=== PATIENT | female | born 1960 | race Caucasian/White ===

== ENCOUNTER → 2021-08-23 14:34 | Outpatient (REF) | payer OTHER, SELFPAY ==
--- NOTE | ~2021-08-23 | XR_ITS ---
EXAMINATION: XR CHEST CLINICAL INFORMATION: Follow up density right medial lung base COMPARISON: Previous chest x-ray 05/18/2021 TECHNIQUE: 2 views of the chest were obtained. FINDINGS: The cardiac and mediastinal contours are normal. The lungs are clear. There is no pleural effusion or pneumothorax. There are mild degenerative changes of the spine. XR/XR chest 2V IMPRESSION: Unremarkable exam.
--- NOTE | 2021-08-23 15:26 | HM_ITS ---
Conclusion: 1. Patient was monitored for total period of 6 days and 14 hours 2. Baseline rhythm is normal sinus rhythm with average heart rate of 72 beats per minute 3. No atrial fibrillation noted 4. No significant pauses or bradycardia noted 5. Three short runs of supraventricular tachycardia with longest of 5 beats at 135 beats per minute 6. Rare PACs noted 7. No patient reported events MTDD
[2021-08-23 15:43] LABS: MANUAL DIFF FLAG NO
[2021-08-23 15:57] LABS: Basophils Percent Auto 0.7 % (0-2); Eosinophils Absolute Auto 0.1 X10*3/uL (0.0-0.4); Eosinophils Percent Auto 1.6 % (0-4); Hematocrit 41.3 % (37-47); Hemoglobin 13.5 g/dl (12.0-16.0); Imm Gran Abs Auto 0.03 X10*3/uL (0.00-0.03); Imm Gran Pct Auto 0.5 % (0.0-0.4); Lymphocytes Absolute Auto 1.5 X10*3/uL (1.2-4.9); Lymphocytes Percent Auto 25.3 % (20-40); Mean Corpuscular HGB Conc 32.7 g/dl (31.0-35.0); Mean Corpuscular Hemoglobin 28.5 pg (27.0-33.0); Mean Corpuscular Volume 87.3 fL (80-98); Mean Platelet Volume 9.3 fL (9.4-12.3); Monocytes Absolute Auto 0.5 X10*3/uL (0.1-1.2); Monocytes Percent Auto 7.9 % (2-11); Neutrophils Absolute Auto 3.9 X10*3/uL (2.0-8.3); Platelet Count 309 X10*3/uL (160-400); Red Blood Count 4.73 X10*6/uL (4.20-5.50); Red Cell Distribution Width 14.2 % (11.0-16.0); White Blood Count 6.1 X10*3/uL (4.8-10.8)
== END ==
LOC: HO.CARD 14:34
PROVIDERS: PCP Internal Medicine; Visit Provider Internal Medicine
DX: R91.1 Solitary pulmonary nodule (principal); E66.3 Overweight; D64.9 Anemia, unspecified; Z87.898 Personal history of other specified conditions
CPT/HCPCS: 36415; 71046; 84443; 85025; 93242

== ENCOUNTER 2021-10-06 07:50 | Outpatient (REF) | payer OTHER, SELFPAY ==
--- NOTE | 2021-10-06 08:00 | EEG_ITS ---
This is a 16-channel EEG with an EKG lead. The patient is reported awake during the tracing. Background EEG rhythm is about 10 hertz, 5 to 30 microvolt posteriorly, lower amplitude fast anteriorly. Photic stimulation does not produce any significant abnormality. Hyperventilation is not performed. Cardiac lead does not reveal any significant abnormality. No sharp wave spikes, paroxysmal tendency, or asymmetry noted. IMPRESSION: Unremarkable EEG. MD IESHA Martinez/MER / [id number]
[2021-10-06 08:53] LABS: Alanine Aminotransferase 23 U/L (0-31); Albumin Level 4.4 g/dL (3.5-5.0); Alkaline Phosphatase 59 U/L (39-117); Anion Gap 10 (12-20); Aspartate Amino Transferase 23 U/L (5-31); Bilirubin Total 0.7 mg/dL (0.0-1.0); Blood Urea Nitrogen 11 mg/dL (9-16); Calcium 9.6 mg/dL (8.4-10.2); Carbon Dioxide 29 mmol/L (22-29); Chloride 106 mmol/L (96-108); Cholesterol 220 mg/dL; Estimated Glomerular Filt Rate > 60; Glucose Fasting 99 mg/dL (60-99); HDL Cholesterol 83 mg/dL; LDL Cholesterol Calculated 126 mg/dl; Potassium 4.4 mmol/L (3.3-5.1); Sodium 141 mmol/L (135-145); Triglycerides 58 mg/dL
== END 2021-10-06 07:51 | disposition home or self-care (01) ==
LOC: HO.NEURO 07:50
PROVIDERS: Visit Provider Internal Medicine
DX: E66.3 Overweight (principal); E78.5 Hyperlipidemia, unspecified
CPT/HCPCS: 36415; 80053; 80061; 95816

== ENCOUNTER 2021-10-18 08:18 | Outpatient (REF) | payer OTHER, SELFPAY ==
[2021-10-21 20:07] LABS: HPV mRNA E6/E7 rflx Not Detected (Not Detected)
== END 2021-10-18 08:19 | disposition home or self-care (01) ==
LOC: HO.LAB 08:18
PROVIDERS: Visit Provider Advanced Practice Midwife
DX: Z01.419 Encounter for gynecological examination (general) (routine) without abnormal findings (principal); Z11.51 Encounter for screening for human papillomavirus (HPV)
CPT/HCPCS: 87624; 88142

== ENCOUNTER 2021-11-07 16:11 | Outpatient (REF) | payer OTHER, SELFPAY ==
--- NOTE | ~2021-11-07 | MM_ITS ---
EXAMINATION: MM SCREENING DIGITAL BREAST TOMOSYNTHESIS, BILATERAL CLINICAL INFORMATION: Screening. Asymptomatic. No prior breast imaging. Age 61. No known family history breast cancer. The lifetime risk of breast cancer based on the Tyrer-Cuzick Model is 9%. COMPARISON: None (current study represents initial baseline exam). TECHNIQUE: Digital breast tomosynthesis is performed in both the craniocaudal and mediolateral oblique views along with computer-aided detection (CAD). Synthesized 2D images are generated from the tomosynthesis. Additional right MLO view is provided. FINDINGS: There are scattered areas of fibroglandular density (ACR BI-RADS breast composition Category b). There is fine fibronodular parenchymal pattern. There is no significant mass or architectural abnormality or abnormal calcifications. Skin contours are smooth. MM/MM tomosynthesis screening BI IMPRESSION: No mammographic evidence of malignancy. ASSESSMENT: BI-RADS 2: Benign RECOMMENDATION: Routine annual mammography screening. This patient's information was entered into a reminder system with a target due date for their next mammogram.
== END 2021-11-07 16:12 | disposition home or self-care (01) ==
LOC: HO.MAMMO 16:11
PROVIDERS: Visit Provider Advanced Practice Midwife
DX: Z12.31 Encounter for screening mammogram for malignant neoplasm of breast (principal)
CPT/HCPCS: 77063; 77067

== ENCOUNTER 2022-05-23 09:28 | Outpatient (REF) | payer OTHER, SELFPAY ==
[2022-05-23 10:33] LABS: Alanine Aminotransferase 21 U/L (0-31); Albumin Level 4.4 g/dL (3.5-5.0); Alkaline Phosphatase 63 U/L (39-117); Anion Gap 11 (12-20); Aspartate Amino Transferase 19 U/L (5-31); Bilirubin Total 0.4 mg/dL (0.0-1.0); Blood Urea Nitrogen 10 mg/dL (9-16); Calcium 9.1 mg/dL (8.4-10.2); Carbon Dioxide 27 mmol/L (22-29); Chloride 106 mmol/L (96-108); Cholesterol 214 mg/dL; Estimated Glomerular Filt Rate > 60; Glucose Fasting 91 mg/dL (60-99); HDL Cholesterol 75 mg/dL; LDL Cholesterol Calculated 127 mg/dl; Potassium 4.7 mmol/L (3.3-5.1); Sodium 139 mmol/L (135-145); Total Protein 7.1 g/dL (6.5-8.0); Triglycerides 63 mg/dL
== END 2022-05-23 09:29 | disposition home or self-care (01) ==
LOC: HO.LAB 09:28
PROVIDERS: PCP Internal Medicine; Visit Provider Internal Medicine
DX: Z01.419 Encounter for gynecological examination (general) (routine) without abnormal findings (principal); E78.5 Hyperlipidemia, unspecified
CPT/HCPCS: 36415; 80053; 80061

== ENCOUNTER 2022-12-01 15:39 | Outpatient (REF) | payer OTHER, SELFPAY ==
--- NOTE | ~2022-12-01 | MM_ITS ---
EXAMINATION: MM SCREENING DIGITAL BREAST TOMOSYNTHESIS, BILATERAL CLINICAL INFORMATION: Screening. Asymptomatic. The lifetime risk of breast cancer based on the Tyrer-Cuzick Model is 9%. COMPARISON: Mammography: 11/07/2021 (baseline) TECHNIQUE: Digital breast tomosynthesis is performed in both the craniocaudal and mediolateral oblique views along with computer-aided detection (CAD). Synthesized 2D images are generated from the tomosynthesis. Additional left MLO view is provided FINDINGS: There are scattered areas of fibroglandular density (ACR BI-RADS breast composition Category b). There is fine fibronodular parenchymal pattern similar to prior baseline exam. No interval mass or architectural abnormality. Right breast shows no abnormal calcifications. The bilateral axilla and skin contours are unremarkable. Left CC view has some punctate calcifications versus pseudo calcifications central breast, corresponding to the mid to lower tomographic slices. Patient will be recalled for additional imaging. MM/MM tomosynthesis screening BI IMPRESSION: Left: -Punctate calcifications versus digital calcification digital processing artifact central breast CC view. Right: -No mammographic evidence of malignancy. ASSESSMENT: BI-RADS 0: Incomplete - Need Additional Imaging Evaluation RECOMMENDATION: 1. Additional views of the left breast (magnification CC, magnification ML upper and lower). 2. Radiology department staff will contact the patient for additional imaging. This patient's information was entered into a reminder system with a target due date for their next mammogram.
== END 2022-12-01 15:40 | disposition home or self-care (01) ==
LOC: HO.MAMMO 15:39
PROVIDERS: Visit Provider Internal Medicine
DX: Z12.31 Encounter for screening mammogram for malignant neoplasm of breast (principal)
CPT/HCPCS: 77063; 77067

== ENCOUNTER 2022-12-08 08:54 | Outpatient (REF) | payer OTHER, SELFPAY ==
--- NOTE | ~2022-12-08 | MM_ITS ---
EXAMINATION: MM DIAGNOSTIC DIGITAL MAMMOGRAPHY, LEFT CLINICAL INFORMATION: Question left breast calcifications seen on craniocaudal view. COMPARISON: Mammography: 12/01/2022 and 11/07/2021. TECHNIQUE: Digital mammography is performed in the following views: Spot magnification views, left craniocaudal and 90-degree mediolateral views. FINDINGS: There are scattered areas of fibroglandular density (ACR BI-RADS breast composition Category b). No suspicious grouping of calcifications is identified. There is 1 macrocalcification seen at approximately the 12 o'clock position. Results are provided to the patient at time of visit by the technologist. MM/MM added views LT IMPRESSION: No suspicious grouping of microcalcifications identified. ASSESSMENT: BI-RADS 1: Negative. RECOMMENDATION: Routine annual mammography screening due in 12 months. This patient's information was entered into a reminder system with a target due date for their next mammogram.
== END 2022-12-08 08:55 | disposition home or self-care (01) ==
LOC: HO.MAMMO 08:54
PROVIDERS: PCP Internal Medicine; Visit Provider Internal Medicine
DX: R92.1 Mammographic calcification found on diagnostic imaging of breast (principal)
CPT/HCPCS: 77065

== ENCOUNTER → 2023-01-10 14:57 | Outpatient (BNVA) | payer OTHER, SELFPAY | PROVIDERS: PCP Internal Medicine; Visit Provider Advanced Practice Midwife | DX: Z13.89 Encounter for screening for other disorder (principal) ==

== ENCOUNTER 2023-12-03 15:46 | Outpatient (REF) | payer OTHER, SELFPAY | END 2023-12-03 15:47 | disposition home or self-care (01) | LOC: HO.MAMMO 15:46 | PROVIDERS: PCP Internal Medicine; Visit Provider Internal Medicine | DX: Z12.31 Encounter for screening mammogram for malignant neoplasm of breast (principal) | CPT/HCPCS: 77063; 77067 ==

== ENCOUNTER → 2023-12-03 16:00 | Outpatient (BNV) | payer OTHER, SELFPAY | PROVIDERS: PCP Internal Medicine; Visit Provider Radiology Diagnostic Radiology | DX: Z12.31 Encounter for screening mammogram for malignant neoplasm of breast (principal) | CPT/HCPCS: 77063; 77067 ==

== ENCOUNTER 2023-12-18 17:13 | Outpatient (AMB) | payer OTHER, SELFPAY ==
--- NOTE | 2023-12-18 17:14 | A.OFFPC_ITS ---
Vital Signs 12/18/23 17:16 Height 5 ft 8 in Weight 200 lb BMI 30.4 BP 156/80 H Blood Pressure Location Lt brachial Position Sitting Intake Visit Reasons: physical Intake Note: Patient here for a physical exam Press Setter Required: No Accompanied by: Self / Same As Patient Allergies Penicillins Allergy (Intermediate, Verified 12/18/23 17:23) rash menthol [From Icy Hot] Allergy (Mild, Verified 12/18/23 17:23) Rash methyl salicylate [From Icy Hot] Allergy (Mild, Verified 12/18/23 17:23) Rash Medication List - Last Reconciled 12/18/23 by Michelle Tripathi MD No Known Home Meds Tobacco use date assessed: 12/18/23 Dental Screening Dental Screen Date: 12/18/23 Did you have a dental visit in the last 12 months?: Yes Did you have a dental problem in the last 6 months where you did not have access to dental care?: No Was dental information given to patient?: Patient has dentist HPI HPI Comments History of Present Illness Details This is a 63-year-old female that comes for her physical exam. Mammogram done 2022. Pap smear done 2022. Cologuard done 2021 was negative. Complains of right hip pain that has been present for over 6 months. Happens on adduction and abduction [facility] Medical History Obesity (BMI 30-39.9) Physical exam Pure hypercholesterolemia Adopted Leg edema Shortness of breath Alcohol use Lung nodule History of syncope Overweight (BMI 25.0-29.9) Surgical History History of sebaceous cyst Family History Unknown Adopted Social History Housing: Condominium Alcohol intake: current Alcohol intake frequency: a few times a week Alcohol type: beer Patient Tobacco Use Status: Never used Tobacco e-Cigarette/Vaping Use: Never Used Second Hand Smoke Exposure: No service: No Current occupational status: employed Current occupational exposures/hazards: No Cognitive needs: No Hearing needs: No Vision needs: No Questionnaire PHQ-9 Over the last 2 weeks, how often have you been bothered by any of the following problems? 1. Little interest or pleasure in doing things: not at all 2. Feeling down, depressed, or hopeless: not at all 3. Trouble falling or staying asleep, or sleeping too much: not at all 4. Feeling tired or having little energy: not at all 5. Poor appetite or overeating: not at all 6. Feeling bad about yourself - or that you are a failure or have let yourself or your family down: not at all 7. Trouble concentrating on things, such as reading the newspaper or watching television: not at all 8. Moving or speaking so slowly that other people could have noticed. Or the opposite - being so fidgety or restless that you have been moving around a lot more than usual: not at all 9. Thoughts that you would be better off or of hurting yourself in some way: not at all Total score: 0 Depression Screening Interpretation: Negative Depression Screening Done: Yes 02463 - PHQ-9 Billing: Yes Source: Developed by Drs. Edwin Saenz, Minoo Echeverria, Jaziel Stubbs and colleagues, with an educational cristy from [employer]. Thrive Questionnaire Date Thrive assessed: 12/18/23 I am a: Patient What is your living situation today?: I have a steady place to live Within the past 12 months, did the food you bought not last and you didn't have the money to get more?: Never true Within the past 12 months, did you worry whether your food would run out before you got money to buy more?: Never true Do you have trouble paying for medicines?: No Do you have trouble getting transportation to medical appointments?: No Do you have trouble paying your heating and electricity bill?: No Do you have trouble taking care of your child, family member or friend?: No Do you have trouble with day-to-day activities such as bathing, preparing meals, shopping, managing finances, etc.?: No Are you currently unemployed and looking for a job?: No Are you interested in more education?: No Please select the resources that you would like help with: None Currently or been in a relationship where the following occur: no concerns reported THRIVE Score: 0 AUDIT C Alcohol Use Questionnaire (AUDIT-C) 1. How often do you have a drink containing alcohol?: 4 or more times a week 2. How many drinks containing alcohol do you have on a typical day when you are drinking?: 1 or 2 3. How often do you have six or more drinks on one occasion?: Never Total Score: 4 Score Reviewed/Action Taken: Yes MJ-7 AMB Questionnaire MJ-7 Date MJ - 7 assessed: 12/18/23 Feeling nervous, anxious, or on edge: 0 = Not at all Not being able to stop or control worryin = Not at all Worrying too much about different things: 0 = Not at all Trouble relaxin = Not at all Being so restless that it is hard to sit still: 0 = Not at all Becoming easily annoyed or irritable: 0 = Not at all Feeling afraid as if something awful might happen: 0 = Not at all Total MJ-7 score (0-4 normal; 5-9 mild; 10-14 moderate; 15-21 severe): 0 Source: Developed by Drs. Edwin Saenz, Minoo Echeverria, Jaziel Stubbs and colleagues, with an educational cristy from [employer]. MJ-7 Assessment Billing MJ-7 Assessment Tool: MJ-7 Assessment 37308 Review of Systems Const All systems reviewed & are unremarkable except as noted in HPI and below Eyes Reports no additional complaints, Denies change in vision and Denies other v isual disturbances Card Denies chest pain at rest, Denies chest pain with activity, Denies edema, Denies irregular heart rhythm, Denies claudication, Denies dyspnea, Denies dyspnea on exertion, Denies orthopnea, Denies paroxysmal nocturnal dyspnea and Denies slow heart rate Resp Denies cough, Denies dyspnea and Denies dyspnea on exertion GI Denies abdominal pain, Denies change in bowel habits, Denies excessive flatus, Denies nausea and Denies vomiting Denies urinary incontinence, Denies urinary hesitancy and Denies urinary urgency Musc Denies abnormal gait, Denies atrophy, Denies deformity, Reports arthralgias and Denies limited range of motion Skin/Breast Denies bleeding lesions, Denies changing lesions and Denies rash Neuro Denies abnormal gait, Denies behavioral changes, Denies confusion and Denies lack of coordination Psych Denies behavioral changes and Denies confusion Physical exam (Primary Care) Vital Signs: Last Vital Signs BP 156/80 H 12/18/23 17:16 BMI result Body Mass Index 30.4 Tobacco/Smoking Status: Tobacco use Status Tobacco use date assessed 12/06/22 12/06/22 17:25 Patient Tobacco Use Status Never used Tobacco 01/10/23 15:14 e-Cigarette/Vaping Use Never Used 01/10/23 15:14 Depression Screening Interpretation: Negative Thrive Assessment: Date of Thrive Assessment Date Thrive assessed 12/06/22 12/06/22 17:25 Currently or been in a relationship where the following occur: no concerns reported Const General: No confusion Orientation/consciousness: patient oriented x3 and No confusion HENMT Head: Yes normal to inspection, Yes normocephalic and Yes atraumatic Ears: external ears normal Eyes General: appearance normal, both eyes and all related structures Eyelids: Yes eyelids normal Conjunctivae: conjunctivae normal Neck Neck: Yes normal visual inspection and Yes supple Resp Effort & Inspection: normal respiratory effort Auscultation: clear to auscultation bilaterally Cardio Jugular venous distension: no JVD Rate: regular rate Rhythm: regular rhythm Heart sounds: S1 normal heart sound present and S2 normal heart sound present GI Inspection: Yes normal to inspection Palpation (GI): Soft to palpation and nontender Auscultation: normal bowel sounds Skin General skin exam: no rashes or lesions noted Neuro General: patient oriented x3, no focal motor deficits and No confusion Extrem General: Yes full ROM Psych Appearance: grossly normal Assessment and Plan Assessment & Plan (1) Physical exam: Code(s): Z00.00 - Encounter for general adult medical examination without abnormal findings Plan: Repeat in a year. Orders: Orders ECG 12 lead EKG Today R00.0 - Tachycardia, unspecified XR DEXA axial skeleton Today N95.9 - Unspecified menopausal and perimenopausal disorder XR hip RT min 2V Today M25.551 - Pain in right hip Lipid Panel Today E78.5 - Hyperlipidemia, unspecified, Z00.00 - Encounter for general adult medical examination without abnormal findings Comprehensive [place]. Panel Fast Today Z00.00 - Encounter for general adult medical examination without abnormal findings Coding Level of Care Code Est Pt Prev Care 40-64y(89799) Diagnoses Physical exam Z00.00 Additional Codes MJ-7 Assessment Billing - MJ-7 Assessment Tool: MJ-7 Assessment 53464 ([id number]) Time Spent (min) 31
[2023-12-18 17:16] VITALS: BP 156/80; BMI 30.4
== END 2023-12-18 17:30 | disposition home or self-care (01) ==
LOC: HO.HMGH 17:14
PROVIDERS: PCP Internal Medicine; Visit Provider Internal Medicine
DX: Z00.00 Encounter for general adult medical examination without abnormal findings (principal)
CPT/HCPCS: 99396

== ENCOUNTER 2023-12-21 07:22 | Outpatient (REF) | payer OTHER, SELFPAY ==
--- NOTE | ~2023-12-21 | XR_ITS ---
EXAMINATION: XR HIP, RIGHT CLINICAL INFORMATION: Pain in right hip, patient stated back injury and right hip pain from injury from a year ago. COMPARISON: None available. TECHNIQUE: 2 views of the right hip. FINDINGS: Degenerative changes in the right sacroiliac joint. Small rounded pelvic calcifications are likely vascular. Mild joint space narrowing right hip with degenerative changes. XR/XR hip RT min 2V IMPRESSION: Mild degenerative changes in the right hip.
--- NOTE | 2023-12-21 07:29 | ECG_ITS ---
Test Reason : tachycadia Blood Pressure : / mmHG Vent. Rate : 063 BPM Atrial Rate : 063 BPM P-R Int : 138 ms QRS Dur : 084 ms QT Int : 424 ms P-R-T Axes : 056 -11 007 degrees QTc Int : 433 ms Normal sinus rhythm Normal ECG No previous ECGs available Referred By: Michelle Tripathi Electronically Signed By:Uri Hewitt
[2023-12-21 08:23] LABS: Alanine Aminotransferase 18 U/L (0-31); Albumin Level 4.3 g/dL (3.5-5.0); Alkaline Phosphatase 58 U/L (39-117); Anion Gap 13 (12-20); Aspartate Amino Transferase 18 U/L (5-31); Bilirubin Total 0.5 mg/dL (0.0-1.0); Blood Urea Nitrogen 10 mg/dL (9-16); Calcium 9.5 mg/dL (8.4-10.2); Carbon Dioxide 28 mmol/L (22-29); Chloride 106 mmol/L (96-108); Cholesterol 218 mg/dL (<200); Estimated Glomerular Filt Rate > 60; Glucose Fasting 93 mg/dL (60-99); HDL Cholesterol 81 mg/dL (>40); LDL Cholesterol Calculated 125 mg/dL (<100); Sodium 143 mmol/L (135-145); Total Protein 7.4 g/dL (6.5-8.0); Triglycerides 62 mg/dL (<150)
== END 2023-12-21 07:23 | disposition home or self-care (01) ==
LOC: HO.LAB 07:22
PROVIDERS: PCP Internal Medicine; Visit Provider Internal Medicine
DX: M25.551 Pain in right hip (principal); R00.0 Tachycardia, unspecified; E78.5 Hyperlipidemia, unspecified; Z00.00 Encounter for general adult medical examination without abnormal findings
CPT/HCPCS: 36415; 73502; 80053; 80061; 93005

== ENCOUNTER → 2023-12-21 07:29 | Outpatient (BNV) | payer OTHER, SELFPAY | PROVIDERS: PCP Internal Medicine; Visit Provider Internal Medicine Cardiovascular Disease | DX: R00.0 Tachycardia, unspecified (principal) | CPT/HCPCS: 93010 ==

== ENCOUNTER 2024-01-04 14:17 | Outpatient (REF) | payer OTHER, SELFPAY ==
--- NOTE | ~2024-01-04 | MM_ITS ---
EXAMINATION: BONE DENSITOMETRY CLINICAL INDICATION: Unspecified menopausal and perimenopausal disorder. COMPARISON: This is the patient's baseline examination. TECHNIQUE: Using a [employer] DXA System (software version: 13.1) manufactured by [employer], dual-energy x-ray absorptiometry was performed of the lumbar spine and left hip. The images are of good technical quality. Summary results are attached. FINDINGS: LEFT FEMUR, NECK: BMD 0.898 g/cm2, Z-score -0.1, T-score -1.0, normal. LEFT FEMUR, TOTAL: BMD 0.980 g/cm2, Z-score 0.3, T-score -0.2, normal. AP SPINE L1-L4: BMD 1.067 g/cm2, Z-score -0.3, T-score -0.9, normal. IDENTIFIED RISK FACTORS: Menopause. HISTORY OF FRACTURE: None listed. MEDICATIONS: Calcium. MM/XR DEXA axial skeleton IMPRESSION: 1. DIAGNOSIS: Normal bone density based on the lowest T-score value of -1.0 in the femoral neck applying World Health Organization criteria. 2. 10-YEAR FRACTURE RISK PREDICTION, FRAX: According to the guidelines, FRAX calculation should only be performed on patients in the osteopenia bone density category. Therefore, FRAX was not performed on this patient. 3. Treatment Recommendations: NOF guidelines recommend consideration for treatment in postmenopausal women and men age 50 and older presenting with the following: -A hip or vertebral (clinical or morphometric) fracture. -T-score less than or equal to -2.5 at the femoral neck or spine after appropriate evaluation to exclude secondary causes. -Low bone mass at the hip or spine and a 10-year fracture probability by FRAX of greater than or equal to 3% for hip fracture or greater than or equal to 20% for major osteoporotic fracture based on the [place] adapted WHO algorithm. 4. Other Recommendations: All treatment decisions require clinical judgment and consideration of individual patient factors, including patient preferences, comorbidities, previous drug use, risk factors not captured in the FRAX model (e.g. frailty, falls, vitamin D deficiency, increased bone turnover, interval significant decline in bone density) and possible under or overestimation of fracture risk by FRAX. FUTURE SCAN RECOMMENDATION: People with diagnosed cases of osteoporosis or at high risk for fracture should have regular bone mineral density tests. For patients eligible for Medicare, routine testing is allowed once every 2 years. The testing frequency can be increased to one year for patients who have rapidly progressing disease, those who are receiving or discontinuing medical therapy to restore bone mass, or have additional risk factors.
== END 2024-01-04 14:18 | disposition home or self-care (01) ==
LOC: HO.MAMMO 14:17
PROVIDERS: PCP Internal Medicine; Visit Provider Internal Medicine
DX: Z13.820 Encounter for screening for osteoporosis (principal); Z78.0 Asymptomatic menopausal state
CPT/HCPCS: 77080

== ENCOUNTER 2024-02-27 14:08 | Outpatient (AMB) | payer OTHER, SELFPAY ==
--- NOTE | 2024-02-27 14:28 | MHC.OFFVIS ---
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 She is doing well with no concerns. Attempting to eat a healthy diet with calcium and vitamin D and stays active with exercise. Currently not sexually active. Denies any vaginal dryness or irritation. STI testing offered; she declines. Last pap smear; 2020. Last mammogram; 2023. Colonoscopy is UTD. Patient is adopted. [facility] Medical History Obesity (BMI 30-39.9) Physical exam Pure hypercholesterolemia Adopted Leg edema Shortness of breath Alcohol use Lung nodule History of syncope Overweight (BMI 25.0-29.9) Surgical History History of sebaceous cyst Family History Unknown Adopted Social History Housing: Condominium Alcohol intake: current Alcohol intake frequency: a few times a week Alcohol type: beer Patient Tobacco Use Status: Never used Tobacco e-Cigarette/Vaping Use: Never Used Second Hand Smoke Exposure: No service: No Current occupational status: employed Current occupational exposures/hazards: No Cognitive needs: No Hearing needs: No Vision needs: No Female Reproductive History Menstrual Total pregnancies: 0 Date of last pap smear: 10/18/21 (neg pap and hpv) Date of Mammogram: 12/03/23 (Birad 1) Date of last Bone Density Screenin01/04/24 Review of Systems Const All systems reviewed & are unremarkable except as noted in HPI and below Reports as per HPI Eyes Reports no additional complaints ENT Reports no additional complaints Card Reports no additional complaints Resp Reports no additional complaints GI Reports as per HPI and Reports no additional complaints Reports as per HPI Musc Reports no additional complaints Skin/Breast Reports as per HPI Neuro Reports no additional complaints Psych Reports no additional complaints Endo Reports no additional complaints Faisal/Lymph Reports no additional complaints Aller/Immun Reports no additional complaints Physical Exam Vital Signs: Last Vital Signs BP 124/76 02/27/24 14:29 BMI result Body Mass Index 30.1 Const General: cooperative, healthy appearing, no acute distress, well developed and alert Orientation/consciousness: patient oriented x3 HEENT Head: Yes normal to inspection Eyes General: appearance normal, both eyes and all related structures Neck Neck: Yes normal visual inspection Thyroid: Thyroid normal Chest Chest palpation & inspection: normal inspection of the chest and other (no puckering, dimpling, peau de orange, retraction, discharge, masses) Breast/axilla inspection: normal inspection of the breasts Breast/axilla palpation: normal palpation of the breasts Resp Effort & Inspection: normal respiratory effort GI Inspection: Yes normal to inspection Palpation (GI): Soft to palpation Rectal Exam - Female: deferred General: Yes bladder normal to palpation External Female Exam: normal external appearance and normal appearance of the urethra Speculum Exam - Vagina: normal appearance of the vagina, normal palpation, normal vaginal discharge and vagina atrophic Speculum Exam - Cervix: normal appearance of the cervix and normal palpation Bimanual exam- vagina & uterus: normal bimanual exam, normal palpation, uterine size normal, bladder normal to palpation, normal palpation and non-tender Bimanual Exam- Adnexa, other: no masses Skin General skin exam: no rashes or lesions noted Rashes: no rashes Neuro General: patient oriented x3 Cognition (Neuro): normal cognition Extrem General: Yes normal to inspection Psych Attitude: cooperative Thought process: Normal thought process present Assessment & Plan Assessment & Plan (1) Encounter for well woman exam with routine gynecological exam: Code(s): Z01.419 - Encounter for gynecological examination (general) (routine) without abnormal findings Plan Discussed: Current recommendations for pap smears per ASCCP guidelines. Breast awareness, periodic self breast exams and yearly mammogram. Maintain a healthy lifestyle, well balanced diet including Calcium 1,200 mg and Vitamin D 600 IU daily, and routine exercise. Contact the office with any postmenopausal bleeding. Patient verbalizes understanding and agrees to the plan of care. She was given opportunity to ask questions and all questions were answered to the best of my ability. 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 This note is constructed using voice recognition software. While every effort has been made to ensure accuracy, generating station mechanic errors may have been included. Coding Level of Care Code Est Pt Prev Care 40-64y(33611) Diagnoses Encounter for well woman exam with routine gynecological exam Z01.419
[2024-02-27 14:29] VITALS: BP 124/76; BMI 30.1
== END 2024-02-27 15:24 | disposition home or self-care (01) ==
LOC: HO.HWS 14:08
PROVIDERS: PCP Internal Medicine; Visit Provider Advanced Practice Midwife
DX: Z01.419 Encounter for gynecological examination (general) (routine) without abnormal findings (principal)
CPT/HCPCS: 99396

== ENCOUNTER → 2024-02-27 14:08 | Outpatient (BNVA) | payer OTHER, SELFPAY | PROVIDERS: PCP Internal Medicine; Visit Provider Advanced Practice Midwife ==

== ENCOUNTER 2024-03-11 07:14 | Outpatient (REF) | payer OTHER, SELFPAY ==
[2024-03-11 08:34] LABS: B Type Natriuretic Peptide 44 pg/mL (<100)
[2024-03-11 08:36] LABS: Cholesterol 208 mg/dL (<200); HDL Cholesterol 71 mg/dL (>40); LDL Cholesterol Calculated 121 mg/dL (<100); Triglycerides 80 mg/dL (<150)
[2024-03-11 08:50] LABS: TSH reflex Free T4 2.68 uIU/mL (0.32-4.0)
== END 2024-03-11 07:15 | disposition home or self-care (01) ==
LOC: HO.LAB 07:14
PROVIDERS: PCP Internal Medicine; Visit Provider Internal Medicine Cardiovascular Disease
DX: Z13.89 Encounter for screening for other disorder (principal)
CPT/HCPCS: 36415; 80061; 83735; 83880; 84443

== ENCOUNTER 2024-07-03 16:54 | Outpatient (AMB) | payer OTHER, SELFPAY ==
[2024-07-03 16:58] VITALS: BP 130/70; BMI 29.6
--- NOTE | 2024-07-03 16:58 | A.OFFPC_ITS ---
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 Accompanied by: Self / Same As Patient Allergies Penicillins Allergy (Intermediate, Verified 07/03/24 17:05) rash menthol [From Icy Hot] Allergy (Mild, Verified 07/03/24 17:05) Rash methyl salicylate [From Icy Hot] Allergy (Mild, Verified 07/03/24 17:05) Rash Medication List - Last Reconciled 07/03/24 by Michelle Tripathi MD apixaban (Eliquis) 5 mg PO BID 90 days diltiazem HCl CD 360 mg PO DAILY metoprolol tartrate 25 mg PO BID Tobacco use date assessed: 12/18/23 Fall risk assessment: No Falls in past year Last assessed Fall Risk: 07/03/24 Dental Screening Dental Screen Date: 12/18/23 HPI HPI Comments History of Present Illness Details This is a 64-year-old female with atrial flutter that comes today complaining of diarrhea that has been present over a month ago after having an upper respiratory viral infection which she recovered from. She was not given any antibiotics. No fever. She will have stool samples done. On chronic anticoagulation for atrial flutter that is follow by cardiology. Will have cardioversion next month. [facility] Medical History (Updated 07/03/24 @ 17:25 by Michelle Tripathi MD) Obesity (BMI 30-39.9) Physical exam Pure hypercholesterolemia Adopted Leg edema Shortness of breath Alcohol use Lung nodule History of syncope Overweight (BMI 25.0-29.9) Surgical History History of sebaceous cyst Family History Unknown Adopted Social History (Updated 07/03/24 @ 17:08 by Michelle Tripathi MD) Housing: Condominium Alcohol intake: former Patient Tobacco Use Status: Never used Tobacco e-Cigarette/Vaping Use: Never Used Second Hand Smoke Exposure: No service: No Current occupational status: employed Current occupational exposures/hazards: No Cognitive needs: No Hearing needs: No Vision needs: No Questionnaire Thrive Questionnaire Date Thrive assessed: 12/18/23 MJ-7 AMB Questionnaire MJ-7 Date MJ - 7 assessed: 12/18/23 Source: Developed by Drs. Edwin Saenz, Minoo Echeverria, Jaziel Stubbs and colleagues, with an educational cristy from [employer]. Review of Systems Const All systems reviewed & are unremarkable except as noted in HPI and below Card Denies chest pain at rest, Denies chest pain with activity, Reports rapid heart rate, Denies edema, Denies irregular heart rhythm, Denies claudication, Denies dyspnea, Denies dyspnea on exertion, Denies orthopnea, Denies paroxysmal nocturnal dyspnea and Denies slow heart rate Resp Denies cough, Denies dyspnea and Denies dyspnea on exertion Physical exam (Primary Care) Vital Signs: Last Vital Signs BP 130/70 07/03/24 16:58 BMI result Body Mass Index 29.6 Tobacco/Smoking Status: Tobacco use Status Tobacco use date assessed 12/18/23 07/03/24 17:03 Patient Tobacco Use Status Never used Tobacco 07/03/24 17:08 e-Cigarette/Vaping Use Never Used 07/03/24 17:08 Thrive Assessment: Date of Thrive Assessment Date Thrive assessed 12/18/23 07/03/24 17:03 Resp Effort & Inspection: normal respiratory effort Auscultation: clear to auscultation bilaterally Cardio Jugular venous distension: no JVD Rhythm: regular rhythm and abnormal rhythm irregularly irregular Heart sounds: S1 normal heart sound present and S2 normal heart sound present Extrem General: Yes full ROM Assessment and Plan Assessment & Plan (1) Atrial flutter: Code(s): I48.92 - Unspecified atrial flutter Plan: Continue diltiazem, metoprolol and Eliquis. Follow-up with Cardiology. (2) Diarrhea: Code(s): R19.7 - Diarrhea, unspecified Plan: Stool samples ordered. Orders: Orders Leukocytes Stool Qualitative 07/03/24 R19.7 - Diarrhea, unspecified H pylori Ag Stool 07/03/24 R19.7 - Diarrhea, unspecified Cyclospora & Isospora Stool 07/03/24 R19.7 - Diarrhea, unspecified Giardia Ag Stool EIA 07/03/24 R19.7 - Diarrhea, unspecified Coding Level of Care Code Est Pt Level 3 (53304) Complex EM visit Add On G2211 Diagnoses Atrial flutter I48.92 Diarrhea R19.7 Time Spent (min) 19
== END 2024-07-03 17:24 | disposition home or self-care (01) ==
PROVIDERS: PCP Internal Medicine; Visit Provider Internal Medicine
DX: I48.92 Unspecified atrial flutter (principal); R19.7 Diarrhea, unspecified
CPT/HCPCS: 99213

== ENCOUNTER 2024-07-08 08:40 | Outpatient (REF) | payer OTHER, SELFPAY ==
[2024-07-08 10:14] LABS: Leukocytes Stool Qualitative NEGATIVE (NEGATIVE)
== END 2024-07-08 08:41 | disposition home or self-care (01) ==
LOC: HO.LNP 08:40
PROVIDERS: Visit Provider Internal Medicine
DX: R19.7 Diarrhea, unspecified (principal)
CPT/HCPCS: 87015; 87207; 87329; 87338; 89055

== ENCOUNTER 2024-07-11 20:19 | Outpatient (REF) | payer OTHER, SELFPAY | END 2024-07-11 20:20 | disposition home or self-care (01) | LOC: HO.LNP 20:19 | PROVIDERS: Visit Provider Internal Medicine | DX: R19.7 Diarrhea, unspecified (principal) | CPT/HCPCS: 87015; 87207; 87329; 87338 ==

== ENCOUNTER 2024-12-30 17:21 | Outpatient (AMB) | payer OTHER, SELFPAY ==
--- NOTE | 2024-12-30 17:32 | A.OFFPC_ITS ---
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 Accompanied by: Self / Same As Patient Allergies Penicillins Allergy (Intermediate, Verified 12/30/24 17:53) rash menthol [From Icy Hot] Allergy (Mild, Verified 12/30/24 17:53) Rash methyl salicylate [From Icy Hot] Allergy (Mild, Verified 12/30/24 17:53) Rash Medication List - Last Reconciled 12/30/24 by Michelle Tripathi MD apixaban (Eliquis) 5 mg PO BID 90 days diltiazem HCl CD 360 mg PO DAILY metoprolol tartrate 25 mg PO DAILY Tobacco use date assessed: 12/30/24 Fall risk assessment: No Falls in past year Last assessed Fall Risk: 12/30/24 Dental Screening Dental Screen Date: 12/30/24 Did you have a dental visit in the last 12 months?: Yes Did you have a dental problem in the last 6 months where you did not have access to dental care?: No Was dental information given to patient?: Patient has dentist HPI HPI Comments History of Present Illness Details The patient is a 64-year-old female presenting for a routine physical examination and health maintenance. She has a history of paroxysmal atrial flutter for which she is currently anticoagulated with Eliquis twice daily. She is also on diltiazem 360 mg daily in the morning and metoprolol 25 mg daily in the evening, as per her in home sales consultant's recommendation, due to hypertension and atrial fibrillation. She reports no recent increase in symptoms and passed a stress test recently with positive outcomes. The patient had her last tetanus vaccine in 2018 and has a Tdap due in 2028. She reports penicillin and menthol allergies. 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 The condition worsened with these activities, so she has played pickleball sparingly and is currently undergoing physical therapy with hopes of symptom resolution by the golf season. The patient has a BMI of 30.6, classifying her as Class 1 obesity, noting a weight gain of 6 pounds since her last examination. She attributes this to decreased activity due to her shoulder injury and recent influenza. - Last Tdap vaccination in 2019; next du e in 2028 - Mammogram recommended for this year - Bone density scan scheduled for 2025 - Pap smear last conducted in 2020, not due until five years if previous results negative - Cologuard test needs to be repeated in 2024 - Recent stress test with no significant findings - Blood work to include cholesterol, sug ar, kidneys, and liver function [facility] Medical History Obesity (BMI 30-39.9) Physical exam Pure hypercholesterolemia Adopted Leg edema Shortness of breath Alcohol use Lung nodule History of syncope Overweight (BMI 25.0-29.9) Surgical History History of sebaceous cyst Family History Unknown Adopted Social History (Updated 12/30/24 @ 17:57 by Michelle Tripathi MD) Housing: Condominium Alcohol intake: current Alcohol intake frequency: a few times a month Alcohol type: beer Patient Tobacco Use Status: Never used Tobacco e-Cigarette/Vaping Use: Never Used Second Hand Smoke Exposure: No service: No Current occupational status: employed Current occupational exposures/hazards: No Cognitive needs: No Hearing needs: No Vision needs: No Questionnaire PHQ-9 Over the last 2 weeks, how often have you been bothered by any of the following problems? 1. Little interest or pleasure in doing things: not at all 2. Feeling down, depressed, or hopeless: not at all 3. Trouble falling or staying asleep, or sleeping too much: not at all 4. Feeling tired or having little energy: not at all 5. Poor appetite or overeating: not at all 6. Feeling bad about yourself - or that you are a failure or have let yourself or your family down: not at all 7. Trouble concentrating on things, such as reading the newspaper or watching television: not at all 8. Moving or speaking so slowly that other people could have noticed. Or the opposite - being so fidgety or restless that you have been moving around a lot more than usual: not at all 9. Thoughts that you would be better off or of hurting yourself in some way: not at all Total score: 0 Depression Screening Interpretation: Negative Depression Screening Done: Yes 52514 - PHQ-9 Billing: Yes Source: Developed by Drs. Edwin Saenz, Minoo Echeverria, Jaziel Stubbs and colleagues, with an educational cristy from [employer]. Thrive Questionnaire Date Thrive assessed: 12/30/24 I am a: Patient What is your living situation today?: I have a steady place to live Within the past 12 months, did the food you bought not last and you didn't have the money to get more?: Never true Within the past 12 months, did you worry whether your food would run out before you got money to buy more?: Never true Do you have trouble paying for medicines?: No Do you have trouble getting transportation to medical appointments?: No Do you have trouble paying your heating and electricity bill?: No Do you have trouble taking care of your child, family member or friend?: No Do you have trouble with day-to-day activities such as bathing, preparing meals, shopping, managing finances, etc.?: No Are you currently unemployed and looking for a job?: No Are you interested in more education?: No Please select the resources that you would like help with: None Currently or been in a relationship where the following occur: No concerns reported THRIVE Score: 0 AUDIT C Alcohol Use Questionnaire (AUDIT-C) 1. How often do you have a drink containing alcohol?: 2-4 times a month 2. How many drinks containing alcohol do you have on a typical day when you are drinking?: 1 or 2 3. How often do you have six or more drinks on one occasion?: Never Total Score: 2 Score Reviewed/Action Taken: No MJ-7 AMB Questionnaire MJ-7 Date MJ - 7 assessed: 12/30/24 Feeling nervous, anxious, or on edge: 1 = Several days Not being able to stop or control worryin = Not at all Worrying too much about different things: 1 = Several days Trouble relaxin = Not at all Being so restless that it is hard to sit still: 0 = Not at all Becoming easily annoyed or irritable: 0 = Not at all Feeling afraid as if something awful might happen: 0 = Not at all Total MJ-7 score (0-4 normal; 5-9 mild; 10-14 moderate; 15-21 severe): 2 Source: Developed by Drs. Edwin Saenz, Minoo Echeverria, Jaziel Stubbs and colleagues, with an educational cristy from [employer]. Review of Systems Const All systems reviewed & are unremarkable except as noted in HPI and below Card Denies chest pain at rest, Denies chest pain with activity, Denies edema, Denies irregular heart rhythm, Denies claudication, Denies dyspnea, Denies dyspnea on exertion, Denies orthopnea, Denies paroxysmal nocturnal dyspnea and Denies slow heart rate Resp Denies cough, Denies dyspnea and Denies dyspnea on exertion GI Denies abdominal pain, Denies change in bowel habits, Denies excessive flatus, Denies nausea and Denies vomiting Denies urinary incontinence, Denies urinary hesitancy and Denies urinary urgency Musc Denies abnormal gait, Denies atrophy, Denies deformity and Denies limited range of motion Skin/Breast Denies bleeding lesions, Denies changing lesions and Denies rash Neuro Denies abnormal gait, Denies behavioral changes and Denies lack of coordination Psych Denies behavioral changes Physical exam (Primary Care) Vital Signs: Last Vital Signs BP 132/78 12/30/24 17:33 BMI result Body Mass Index 30.6 BMI Assessment/Plan discussion: High BMI High, discussed plan: lifestyle, weight reduction, dietary and physical activity Tobacco/Smoking Status: Tobacco use Status Tobacco use date assessed 12/30/24 12/30/24 17:38 Patient Tobacco Use Status Never used Tobacco 12/30/24 17:57 e-Cigarette/Vaping Use Never Used 12/30/24 17:57 PHQ-9: PHQ-9 Score PHQ-9: Total score 0 12/30/24 17:55 Depression Screening Interpretation: Negative Thrive Assessment: Date of Thrive Assessment Date Thrive assessed 12/30/24 12/30/24 17:38 Currently or been in a relationship where the following occur: No concerns reported HENMT Head: Yes normal to inspection, Yes normocephalic and Yes atraumatic Ears: external ears normal Eyes General: appearance normal, both eyes and all related structures Eyelids: Yes eyelids normal Conjunctivae: conjunctivae normal Neck Neck: Yes normal visual inspection and Yes supple Resp Effort & Inspection: normal respiratory effort Auscultation: clear to auscultation bilaterally Cardio Jugular venous distension: no JVD Rate: regular rate Rhythm: regular rhythm Heart sounds: S1 normal heart sound present and S2 normal heart sound present GI Inspection: Yes normal to inspection Palpation (GI): Soft to palpation and nontender Auscultation: normal bowel sounds Skin General skin exam: no rashes or lesions noted Neuro General: no focal motor deficits Extrem General: Yes full ROM Psych Appearance: grossly normal Coding Level of Care Code Est Pt Prev Care 40-64y(90586) Diagnoses Physical exam Z00.00 Atrial flutter I48.92 Additional Codes PHQ-9 - 38365 - PHQ-9 Billing: Yes ([id number]) Time Spent (min) 32 Assessment & Plan Assessment & Plan (1) Physical exam: Code(s): Z00.00 - Encounter for general adult medical examination without abnormal findi ngs Category: Medical (2) Atrial flutter: Code(s): I48.92 - Unspecified atrial flutter Category: Medical Plan - Continue Eliquis, diltiazem, and metoprolol per in home sales consultant for atrial fibrillation and hypertension management - Order mammogram and Cologuard test for current health screening - Engage in physical therapy for shoulder pain; reassess before golf season - Advise monitoring weight and engaging in allowable physical activities to address obesity - Follow up with blood work to monitor cholesterol, sugar, kidneys, and liver Patient was informed and verbally consented to the use of an ambient scribe for clinic note documentation during this visit. During the visit, we discussed the importance of continuing anticoagulation with Eliquis, and the role that diltiazem and metoprolol play in managing atrial fibrillation and reducing cardiac stress. We reviewed her vaccination schedule, noting the Tdap will be due in 2028. The patient understands the need for regular health screenings and has agreed to proceed with the mammogram and Cologuard test. I elaborated on the significance of weight management and the variability in response to alcohol with her atrial condition. The patient acknowledges the role of physical therapy in her shoulder pain recovery and anticipates resumption of more physical activities thereafter. Orders: Orders MM tomosynthesis screening BI 12/30/24 Z12.31 - Encounter for screening mammogram for malignant neoplasm of breast Lipid Panel 02/25/25 E78.5 - Hyperlipidemia, unspecified, Z00.00 - Encounter for general adult medical examination without abnormal findings Comprehensive [place]. Panel Fast 12/30/24 Z00.00 - Encounter for general adult medical examination without abnormal findings Referrals Cologuard Test Z12.11 - Encounter for screening for malignant neoplasm of colon, Z12.12 - Encounter for screening for malignant neoplasm of rectum Patient Instructions: - Continue current medications as directed by in home sales consultant - Undergo mammogram and Cologuard test as ordered - Attend physical therapy sessions for shoulder management - Monitor dietary intake and physical activity levels to address weight gain - Follow up for further evaluation on health maintenance screenings and blood work outcomes - Seek medical attention if experiencing any new or worsening symptoms related to heart health
[2024-12-30 17:33] VITALS: BP 132/78; BMI 30.6
== END 2024-12-30 18:02 | disposition home or self-care (01) ==
PROVIDERS: PCP Internal Medicine; Visit Provider Internal Medicine
DX: Z00.00 Encounter for general adult medical examination without abnormal findings (principal); I48.92 Unspecified atrial flutter

== ENCOUNTER → 2024-12-30 17:21 | Outpatient (BNVA) | payer OTHER, SELFPAY | PROVIDERS: PCP Internal Medicine; Visit Provider Internal Medicine | DX: Z00.00 Encounter for general adult medical examination without abnormal findings (principal); I48.92 Unspecified atrial flutter; Z79.01 Long term (current) use of anticoagulants; Z79.899 Other long term (current) drug therapy | CPT/HCPCS: 96127 ==

== ENCOUNTER 2025-01-07 07:53 | Outpatient (REF) | payer OTHER, SELFPAY ==
[2025-01-07 09:08] LABS: Alanine Aminotransferase 23 U/L (0-31); Albumin Level 4.2 g/dL (3.5-5.0); Alkaline Phosphatase 64 U/L (39-117); Anion Gap 10 (12-20); Aspartate Amino Transferase 20 U/L (5-31); Bilirubin Total 0.4 mg/dL (0.0-1.0); Blood Urea Nitrogen 10 mg/dL (9-16); Calcium 9.4 mg/dL (8.4-10.2); Carbon Dioxide 27 mmol/L (22-29); Chloride 109 mmol/L (96-108); Cholesterol 204 mg/dL (<200); Estimated Glomerular Filt Rate > 60; Glucose Fasting 96 mg/dL (60-99); HDL Cholesterol 68 mg/dL (>40); LDL Cholesterol Calculated 122 mg/dL (<100); Potassium 4.2 mmol/L (3.3-5.1); Sodium 142 mmol/L (135-145); Total Protein 7.7 g/dL (6.5-8.0); Triglycerides 74 mg/dL (<150)
== END 2025-01-07 07:54 | disposition home or self-care (01) ==
LOC: HO.LAB 07:53
PROVIDERS: PCP Internal Medicine; Visit Provider Internal Medicine
DX: Z00.00 Encounter for general adult medical examination without abnormal findings (principal); E78.5 Hyperlipidemia, unspecified
CPT/HCPCS: 36415; 80053; 80061

== ENCOUNTER 2025-02-12 15:15 | Outpatient (REF) | payer OTHER, SELFPAY | END 2025-02-12 15:16 | disposition home or self-care (01) | LOC: HO.MAMMO 15:15 | PROVIDERS: PCP Internal Medicine; Visit Provider Internal Medicine | DX: Z12.31 Encounter for screening mammogram for malignant neoplasm of breast (principal) | CPT/HCPCS: 77063; 77067 ==

== ENCOUNTER → 2025-02-12 15:30 | Outpatient (BNV) | payer OTHER, SELFPAY | PROVIDERS: PCP Internal Medicine; Visit Provider Internal Medicine | DX: Z12.31 Encounter for screening mammogram for malignant neoplasm of breast (principal) | CPT/HCPCS: 77063; 77067 ==

== ENCOUNTER 2025-03-03 14:10 | Outpatient (AMB) | payer OTHER, SELFPAY ==
--- NOTE | 2025-03-03 14:20 | A.OFFVIS_ITS ---
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 She is doing well with no natural sciences professor concerns. Currently not sexually active. Denies any vaginal irritation, admits to dryness. Attempting to eat a healthy diet with calcium and vitamin D and stays active with exercise-limited w/shoulder injury. Last pap smear; 2020. Last mammogram; February 2025. [employer] is UTD. Pt. is adopted. [facility] Medical History Obesity (BMI 30-39.9) Physical exam Pure hypercholesterolemia Adopted Leg edema Shortness of breath Alcohol use Lung nodule History of syncope Overweight (BMI 25.0-29.9) Surgical History History of sebaceous cyst Family History Unknown Adopted Social History Housing: Condominium Alcohol intake: current Alcohol intake frequency: a few times a month Alcohol type: beer Patient Tobacco Use Status: Never used Tobacco e-Cigarette/Vaping Use: Never Used Second Hand Smoke Exposure: No service: No Current occupational status: employed Current occupational exposures/hazards: No Cognitive needs: No Hearing needs: No Vision needs: No Female Reproductive History Menstrual Total pregnancies: 0 Date of last pap smear: 10/18/21 (neg pap and hpv) Date of Mammogram: 02/12/25 (Birad 0) Date of last Bone Density Screenin01/04/24 Review of Systems Const All systems reviewed & are unremarkable except as noted in HPI and below Reports as per HPI Eyes Reports no additional complaints ENT Reports no additional complaints Card Reports no additional complaints Resp Reports no additional complaints GI Reports as per HPI and Reports no additional complaints Reports as per HPI Musc Reports no additional complaints Skin/Breast Reports as per HPI Neuro Reports no additional complaints Psych Reports no additional complaints Endo Reports no additional complaints Faisal/Lymph Reports no additional complaints Aller/Immun Reports no additional complaints Physical Exam Vital Signs: Last Vital Signs BP 110/74 03/03/25 14:21 BMI result Body Mass Index 30.3 Const General: cooperative, healthy appearing, no acute distress, well developed and alert Orientation/consciousness: patient oriented x3 HEENT Head: Yes normal to inspection Eyes General: appearance normal, both eyes and all related structures Neck Neck: Yes normal visual inspection Thyroid: Thyroid normal Chest Chest palpation & inspection: normal inspection of the chest and other (no puckering, dimpling, peau de orange, retraction, discharge, masses) Breast/axilla inspection: normal inspection of the breasts Breast/axilla palpation: normal palpation of the breasts Resp Effort & Inspection: normal respiratory effort GI Inspection: Yes normal to inspection Palpation (GI): Soft to palpation Rectal Exam - Female: deferred General: Yes bladder normal to palpation External Female Exam: normal external appearance and normal appearance of the urethra Speculum Exam - Vagina: normal appearance of the vagina, normal palpation, normal vaginal discharge and vagina atrophic Speculum Exam - Cervix: normal appearance of the cervix and normal palpation Bimanual exam- vagina & uterus: normal bimanual exam, normal palpation, uterine size normal, bladder normal to palpation, normal palpation and non-tender Bimanual Exam- Adnexa, other: no masses Skin General skin exam: no rashes or lesions noted Rashes: no rashes Neuro General: patient oriented x3 Cognition (Neuro): normal cognition Extrem General: Yes normal to inspection Psych Attitude: cooperative Thought process: Normal thought process present Assessment & Plan Assessment & Plan (1) Encounter for well woman exam with routine gynecological exam: Code(s): Z01.419 - Encounter for gynecological examination (general) (routine) without abnormal findings Category: Medical Plan Discussed: Current recommendations for pap smears per ASCCP guidelines. Breast awareness, periodic self breast exams and yearly mammogram. Maintain a healthy lifestyle, well balanced diet including Calcium 1,200 mg and Vitamin D 600 IU daily, and routine exercise. Vaginal lubrication, skin care, Replens, Aquaphor/vaseline, limit soap. Contact the office with any postmenopausal bleeding. Patient verbalizes understanding and agrees to the plan of care. She was given opportunity to ask questions and all questions were answered to the best of my ability. RTO in 1 year for annual natural sciences professor exam. This note is constructed using voice recognition software. While every effort has been made to ensure accuracy, poem writer errors may have been included. Coding Level of Care Code New Pt Prev Care 40-64y(90935) Diagnoses Encounter for well woman exam with routine gynecological exam Z01.419
[2025-03-03 14:21] VITALS: BP 110/74; BMI 30.3
== END 2025-03-03 15:05 | disposition home or self-care (01) ==
LOC: HO.HWS 14:10
PROVIDERS: PCP Internal Medicine; Visit Provider Advanced Practice Midwife
DX: Z01.419 Encounter for gynecological examination (general) (routine) without abnormal findings (principal)
CPT/HCPCS: 99396; 99459

== ENCOUNTER → 2025-03-03 14:10 | Outpatient (BNVA) | payer OTHER, SELFPAY | PROVIDERS: PCP Internal Medicine; Visit Provider Advanced Practice Midwife ==

== ENCOUNTER 2025-03-26 13:17 | Outpatient (REF) | payer OTHER, SELFPAY ==
--- NOTE | ~2025-03-26 | MM_ITS ---
EXAMINATION: MM DIAGNOSTIC DIGITAL BREAST TOMOSYNTHESIS, RIGHT Limited right breast ultrasound. CLINICAL INFORMATION: Call back from screening for focal asymmetry in the upper outer breast which is developing and with associated architectural distortion. COMPARISON: Mammography: Priors on PACS. TECHNIQUE: Digital breast tomosynthesis is performed in both the craniocaudal and mediolateral oblique views along with computer-aided detection (CAD). Synthesized 2D images are generated from the tomosynthesis. FINDINGS: There are scattered areas of fibroglandular density (ACR BI-RADS breast composition Category b). Developing focal asymmetry in the upper outer breast posterior depth with associated architectural distortion persists on additional imaging projections. No suspicious calcifications or other abnormal findings. Targeted color Doppler ultrasound scanning in the upper outer breast demonstrates normal fibroglandular breast tissue and a few minimally complicated cysts 10:00 7 cm from the nipple measuring 3 x 3e x 2 mm and at 10:00 8 cm from the nipple measuring 3 x 2 x 4 mm. MM/MM tomosynthesis added views R IMPRESSION: Developing focal asymmetry in the upper-outer breast with associated architectural distortion at posterior depth and without sonographic correlate. Recommend stereotactic core needle biopsy at this time for confirmation. The findings and recommendations were discussed with the patient the procedure will be scheduled. ASSESSMENT: BI-RADS BI-RADS 4 - Suspicious finding RECOMMENDATION: Biopsy recommended Results were provided to the patient at time of visit by the technologist. This patient's information was entered into a reminder system with a target due date for their next mammogram. Electronically signed by: Airam Donnelly DO 03/26/2025 02:36 PM EDT
--- OUTSIDE RECORDS SUMMARY | 2025-03-26 13:23 | XMS_ITS | Clinical Summary ---
Author Organization [facility] Address [id number] [place] [id number] Care Team Providers Care Box Tender Name Role Phone Michelle Tripathi MD Primary Care Provider [phone] Social History Tobacco Use Types Packs/Day Years Used Date Smoking Tobacco: Never Assessed Comments Unknown Sex and Gender Information Value Date Recorded Sex Assigned at Not on file Legal Sex Female 3:41 PM EDT Gender Identity Not on file Sexual Orientation Not on file Plan of Treatment Upcoming Encounters Date Type Department Care Team (Late st Contact Info) Description 2025 10:00 AM EDT Consult Orthopedic Surgery - [place] [address] [facility] [address] [place] [phone] Hai Vazquez MD 175 [facility] [address] [place] [address] Health Maintenance Due Date Last Done Comments Breast Cancer Screening 1960 DTaP,Tdap,and Td Vaccines (1 - Tdap) 1979 Cervical Cancer Screening: P ap Smear 1981 Pneumococcal Vaccine: 50+ Ye ars (1 of 1 - PCV) 2010 Zoster Vaccines (1 of 2) 2010 COVID-19 Vaccine ( - 2023-2 5 season) 2024 Colorectal Cancer Screening: Colonoscopy 09/07/2024 Depression Screening 09/07/2024 HIV Screening 09/07/2024 Hepatitis C Screening 09/07/2024 Social Influencers of Health Screening 09/07/2024 Influenza Vaccine (Season Ended) 2025 RSV Immunization Adult Patie nts (1 - 1-dose 75+ series) 2035 HIB Vaccines Aged Out No longer eligi ble based on patient's age to complete this topic HPV Vaccines Aged Out No longer eligi ble based on patient's age to complete this topic Hepatitis A Vaccines Aged Out No long er eligible based on patient's age to complete this topic Hepatitis B Vaccines Aged Out No long er eligible based on patient's age to complete this topic IPV Vaccines Aged Out No longer eligi ble based on patient's age to complete this topic MMR Vaccines Aged Out No longer eligi ble based on patient's age to complete this topic Meningococcal ACWY Vaccine Aged Out N o longer eligible based on patient's age to complete this topic Meningococcal B Vaccine Aged Out No l onger eligible based on patient's age to complete this topic Pneumococcal Vaccine: Pediat rics (0 to 5 Years) and At-Risk Patients (6 to 64 Years) Aged Out No longer eligible b ased on patient's age to complete this topic RSV Immunization Patients Un geraldine 20 months Aged Out No longer eligible b ased on patient's age to complete this topic Varicella Vaccines Aged Out No longer eligible based on patient's age to complete this topic Insurance [place] [id number] Care Teams Box Tender Relationship Specialty Start Date End Date Michelle Tripathi MD 2 [facility] , [address] [place] [address] Physician Associ D/B/A: [facility] LISSA Torres PCP - General Internal Medicine 03/18/25
== END 2025-03-26 13:18 | disposition home or self-care (01) ==
LOC: HO.MAMMO 13:17
PROVIDERS: PCP Internal Medicine; Visit Provider Internal Medicine
DX: N64.89 Other specified disorders of breast (principal)
CPT/HCPCS: 76642; 77061; 77065

== ENCOUNTER → 2025-03-26 13:30 | Outpatient (BNV) | payer OTHER, SELFPAY | PROVIDERS: PCP Internal Medicine; Visit Provider Internal Medicine | DX: R92.8 Other abnormal and inconclusive findings on diagnostic imaging of breast (principal) | CPT/HCPCS: 76642; 77061; 77065 ==

== ENCOUNTER 2025-04-09 08:14 | Outpatient (AMB) | payer OTHER, SELFPAY ==
--- NOTE | 2025-04-09 08:17 | A.OFFVIS_ITS ---
Vital Signs 04/09/25 08:24 Height 5 ft 8 in Weight 201 lb BMI 30.6 BP 128/62 Blood Pressure Location Rt brachial Position Sitting Pulse 66 Intake Visit Reasons: RT BR STEREO BX FOR UOQ ASYMMETRY Intake Note: Patient is seen in office today for stereo biopsy CONSULT for Rt br UOQ asymmetry. Patient c/o: no concerns. Denies breast tenderness, nipple discharge. Patient adopted unaware of family hx. BX scheduled 04-09-2025 @ 9am. Mammogram & RT br US: 03-26-2025 Pet Food Deboner Required: No Accompanied by: Self / Same As Patient Allergies Penicillins Allergy (Intermediate, Verified 04/09/25 08:17) rash menthol [From Icy Hot] Allergy (Mild, Verified 04/09/25 08:17) Rash methyl salicylate [From Icy Hot] Allergy (Mild, Verified 04/09/25 08:17) Rash Medication List - Last Reconciled 04/09/25 by Jeffery Beltran MD apixaban (Eliquis) 5 mg PO BID 90 days diltiazem HCl CD 360 mg PO DAILY metoprolol tartrate 25 mg PO DAILY HPI HPI RT BR STEREO BX FOR UOQ ASYMMETRY: Details: 64-year-old female referred for an abnormal mammogram. She had a screening mammogram last month showing this focal asymmetry in the right breast. She was brought in for targeted ultrasound and mammogram showing this developing focal asymmetry in the upper outer breast with architectural distortion. A stereotactic biopsy was therefore recommended by the radiologist. She denies any palpable mass. Her menarche was at age of 14. She had never been . She had menopause at 54. She was adopted so she would not know her family history with regards to breast cancer. [facility] Medical History (Updated 04/09/25 @ 08:23 by Jeffery Beltran MD) Abnormal mammogram of right breast Breast calcification, right Obesity (BMI 30-39.9) Physical exam Pure hypercholesterolemia Adopted Leg edema Shortness of breath Alcohol use Lung nodule History of syncope Overweight (BMI 25.0-29.9) Surgical History History of sebaceous cyst Family History Unknown Adopted Social History Housing: Condominium Alcohol intake: current Alcohol intake frequency: a few times a month Alcohol type: beer Patient Tobacco Use Status: Never used Tobacco e-Cigarette/Vaping Use: Never Used Second Hand Smoke Exposure: No service: No Current occupational status: employed Current occupational exposures/hazards: No Cognitive needs: No Hearing needs: No Vision needs: No Review of Systems Const Denies chills and Denies fever(s) Card Denies chest pain, Denies dyspnea and Denies dyspnea on exertion Resp Denies cough, Denies dyspnea and Denies dyspnea on exertion GI Denies hematochezia and Denies change in bowel habits Denies hematuria Musc Denies back pain and Denies limited range of motion Neuro Denies focal weakness and Denies convulsions Psych Denies depression and Denies mood swings Physical Exam Const General: comfortable and no acute distress Orientation/consciousness: patient oriented x3 Neck Neck: Yes no lymphadenopathy Chest Other: No palpable breast masses, no axillary lymphadenopathy, no nipple or skin changes Resp Auscultation: clear to auscultation bilaterally Cardio Rhythm: regular rhythm GI Palpation (GI): Soft to palpation, nontender and no guarding Neuro General: patient oriented x3 Assessment & Plan Assessment & Plan (1) Abnormal mammogram of right breast: Code(s): R92.8 - Other abnormal and inconclusive findings on diagnostic imaging of breast Category: Medical Plan: She has this developing focal asymmetry in the upper outer breast with associated architectural distortion. A stereotactic biopsy was recommended by the radiologist I explained to her the technique of this procedure. I will see her again in the office to discuss the path report. She understands the plan Orders: Orders MM stereotactic biopsy RT Today R92.8 - Other abnormal and inconclusive findings on diagnostic imaging of breast Coding Level of Care Code New Pt Level 3 (27270) Diagnoses Abnormal mammogram of right breast R92.8
--- OUTSIDE RECORDS SUMMARY | 2025-04-09 08:20 | XMS_ITS | Clinical Summary ---
Author Organization [facility] Address [address] [place] [id number] Care Team Providers Care Scouring Train Operator Chief Name Role Phone Michelle Tripathi MD Primary Care Provider [phone] Social History Tobacco Use Types Packs/Day Years [...] 10:00 AM EDT Consult Orthopedic Surgery - [place] 160 175 [facility] [address] [place] [phone] Hai Vazquez MD 175 [facility] [address] [place] [address] Health Maintenance Due Date Last Done Comments [...] age to complete this topic Insurance GENERIC [place] [id number] Care Teams Scouring Train Operator Chief Relationship Specialty Start Date End Date Michelle Tripathi MD 2 [facility] , [address] [place] [address] Physician Associ D/B/A: [facility] LISSA Torres PCP - General Internal Medicine 03/18/25
[2025-04-09 08:24] VITALS: BP 128/62; PULSE 66; BMI 30.6
== END 2025-04-09 08:40 | disposition home or self-care (01) ==
LOC: HO.HGS 08:14
PROVIDERS: PCP Internal Medicine; Visit Provider Surgery
DX: R92.8 Other abnormal and inconclusive findings on diagnostic imaging of breast (principal)
CPT/HCPCS: 99203

== ENCOUNTER 2025-04-09 08:43 | Outpatient (REF) | payer OTHER, SELFPAY ==
--- NOTE | ~2025-04-09 | MM_ITS ---
EXAMINATION: STEREOTACTICALLY-GUIDED RIGHT BREAST BIOPSY CLINICAL INFORMATION: Developing focal asymmetry with associated distortion in the upper outer right breast. COMPARISON: Priors on PACS. INFORMED CONSENT: After the details of the procedure, as well as the risks (including, but not limited to, bleeding, hematoma formation, and infection), benefits and alternatives (including doing nothing, short-interval follow up, and surgery) to the procedure were explained to the patient in detail and all of her questions were answered, informed written consent was obtained. TECHNIQUE/FINDINGS: A timeout was performed. The lesion intended for biopsy was identified stereotactically and targeted. The skin of the right breast was then cleansed with sterile solution. Using stereotactic guidance, aseptic technique, and 1% lidocaine with and without epinephrine for local anesthesia, a total of 12 cores were obtained through the targeted area with a 9-gauge vacuum-assisted Eviva core biopsy device from a superior approach. At the completion of tissue sampling, a single top hat-shaped metallic clip was deposited at the biopsy site. Adequate sampling was achieved. The postprocedure 2-view direct digital mammogram reveals satisfactory positioning of the biopsy clip. The patient tolerated the procedure well and, after assuring adequate hemostasis, was discharged in good condition after reviewing postbiopsy breast care instructions. Final pathology results are pending. MM/MM stereotactic biopsy RT IMPRESSION: 1. Uncomplicated stereotactically-guided core biopsy of the right breast. The 2-view direct digital postprocedure mammogram reveals satisfactory positioning of the biopsy clip. 2. Final pathology results are pending. A separate report with final recommendations will be issued once these results are made available. Electronically signed by: Airam Donnelly DO 04/09/2025 11:11 AM EDT
[2025-04-09] MEDS: Sodium Bicarbonate 8.4% 50 MEQ/50 ML VIAL SUBCUT (09:57)
[2025-04-09] MEDS: Lidocaine HCl 1 % 20 ML VIAL 5 ML SUBCUT (09:59)
[2025-04-09] MEDS: Lidocaine HCl 1%/Epi 1:100,000 10 ML VIAL SUBCUT (10:00)
== END 2025-04-09 08:44 | disposition home or self-care (01) ==
LOC: HO.MAMMO 08:43
PROVIDERS: PCP Internal Medicine; Visit Provider Surgery
DX: C50.411 Malignant neoplasm of upper-outer quadrant of right female breast (principal); Z17.0 Estrogen receptor positive status [ER+]; Z17.21 Progesterone receptor positive status; R92.8 Other abnormal and inconclusive findings on diagnostic imaging of breast
CPT/HCPCS: 19081; 88305; 88360; A4648; J2003; J2004

== ENCOUNTER → 2025-04-09 09:00 | Outpatient (BNV) | payer OTHER, SELFPAY | PROVIDERS: PCP Internal Medicine; Visit Provider Internal Medicine | DX: R92.8 Other abnormal and inconclusive findings on diagnostic imaging of breast (principal) | CPT/HCPCS: 19081; 77065 ==

== ENCOUNTER 2025-04-16 15:01 | Outpatient (AMB) | payer OTHER, SELFPAY ==
--- NOTE | 2025-04-16 15:05 | A.OFFVIS_ITS ---
Vital Signs 04/16/25 15:13 Height 5 ft 8 in Weight 198 lb BMI 30.1 BP 153/70 H Blood Pressure Location Rt brachial Position Sitting Pulse 75 Intake Visit Reasons: breast bx results Intake Note: Patient here to discuss Breast, right, upper outer quadrant, stereotactic biopsy results. Patient c/o: reports bx site healing well. Client Technical Specialist Required: No Accompanied by: Self / Same As Patient Allergies Penicillins Allergy (Intermediate, Verified 04/16/25 15:06) rash menthol [From Icy Hot] Allergy (Mild, Verified 04/16/25 15:06) Rash methyl salicylate [From Icy Hot] Allergy (Mild, Verified 04/16/25 15:06) Rash Medication List - Last Reconciled 04/16/25 by Jeffery Beltran MD apixaban (Eliquis) 5 mg PO BID 90 days diltiazem HCl CD 360 mg PO DAILY metoprolol tartrate 25 mg PO DAILY HPI HPI breast bx results: Details: 65-year-old female here for follow-up for an abnormal mammogram. She had a screening mammogram last month showing this focal asymmetry in the right breast. She was brought in for targeted ultrasound and mammogram showing this developing focal asymmetry in the upper outer breast with architectural distortion. A stereotactic biopsy was therefore recommended and was done by the radiologist last April 09. She is here to discuss the findings. She tolerated the biopsy well and denies any hematoma. She denies any palpable mass. Her menarche was at age of 14. She had never been . She had menopause at 54. She was adopted so she would not know her family history with regards to breast cancer. [facility] Medical History (Updated 04/16/25 @ 16:02 by Jeffery Beltran MD) Invasive ductal carcinoma of breast Abnormal mammogram of right breast Breast calcification, right Obesity (BMI 30-39.9) Physical exam Pure hypercholesterolemia Adopted Leg edema Shortness of breath Alcohol use Lung nodule History of syncope Overweight (BMI 25.0-29.9) Surgical History History of sebaceous cyst Family History Unknown Adopted Social History Housing: Condominium Alcohol intake: current Alcohol intake frequency: a few times a month Alcohol type: beer Patient Tobacco Use Status: Never used Tobacco e-Cigarette/Vaping Use: Never Used Second Hand Smoke Exposure: No service: No Current occupational status: employed Current occupational exposures/hazards: No Cognitive needs: No Hearing needs: No Vision needs: No Review of Systems Const Denies chills and Denies fever(s) Card Denies chest pain, Denies dyspnea and Denies dyspnea on exertion Resp Denies cough, Denies dyspnea and Denies dyspnea on exertion GI Denies hematochezia and Denies change in bowel habits Denies hematuria Musc Denies back pain and Denies limited range of motion Neuro Denies focal weakness and Denies convulsions Psych Denies depression and Denies mood swings Physical Exam Vital Signs: Last Vital Signs Pulse 75 04/16/25 15:13 BP 153/70 H 04/16/25 15:13 BMI result Body Mass Index 30.1 Const General: comfortable and no acute distress Orientation/consciousness: patient oriented x3 Neck Neck: Yes no lymphadenopathy Chest Other: No palpable mass on the breasts, no axillary lymphadenopathy, no hematoma Resp Auscultation: clear to auscultation bilaterally Cardio Rhythm: regular rhythm GI Palpation (GI): Soft to palpation, nontender and no guarding Neuro General: patient oriented x3 Assessment & Plan Assessment & Plan (1) Invasive ductal carcinoma of breast: Code(s): C50.919 - Malignant neoplasm of unspecified site of unspecified female breast Category: Medical Plan: She had a stereotactic biopsy for the right breast calcifications last 04/09/2025. Unfortunately, path report shows invasive ductal carcinoma. The tumor is ERPR positive and HER2 negative I had a long discussion with her about the option of breast conservation therapy versus mastectomy. She understands that if she chose breast conservation therapy with lumpectomy, she will require radiation to the right breast to complete treatment. She understands the technique of this procedure. She understands the risks, benefits and alternatives of both procedures She says that she already has decided she wants to proceed with lumpectomy. She will have a Hologic localizer placed. She understands that she will also have sentinel node biopsy. She is leaving for to schedule vacations, 1 to [place] in to [place] in the next 3 weeks. We therefore will not be able to do her surgery until she comes back after May 20. We will also have her seen by the oncologist. She understands the plan well. Orders: Orders NM sentinel node w imaging 04/16/25 C50.919 - Malignant neoplasm of unspecified site of unspecified female breast Coding Level of Care Code Est Pt Level 4 (36600) Diagnoses Invasive ductal carcinoma of breast C50.919
[2025-04-16 15:13] VITALS: BP 153/70; PULSE 75; BMI 30.1
== END 2025-04-16 15:38 | disposition home or self-care (01) ==
LOC: HO.HGS 15:02
PROVIDERS: PCP Internal Medicine; Visit Provider Surgery
DX: C50.919 Malignant neoplasm of unspecified site of unspecified female breast (principal)
CPT/HCPCS: 99214

== ENCOUNTER 2025-04-30 09:49 | Outpatient (REF) | payer OTHER, SELFPAY ==
--- NOTE | ~2025-04-30 | MM_ITS ---
EXAMINATION: MM MAMMOGRAM GUIDED RFID LOCALIZATION BREAST, RIGHT CLINICAL INFORMATION: Recent right breast stereotactic core needle biopsy with pathology of invasive ductal carcinoma and ductal carcinoma in situ here for tag localization. COMPARISON: Priors on PACS. TECHNIQUE NEEDLE LOC: Proper informed consent is obtained from the patient after discussion of the procedure, potential risks and complications, and alternatives including declining the procedure today. Patient was given an opportunity for questions. The patient appeared to understand. The patient consented to the procedure and signed the consent form. GUIDANCE: Digital mammography. APPROACH: Superior. TARGET: Top hat clip upper outer quadrant. ANESTHESIA: carbonated lidocaine 1%: 6 mL. LOCALIZATION SYSTEM: [employer] LOCallizer Wire-Free Guidance System with 12g needle applicator. RADIOFREQUENCY TAG: ID # [id number] . RF Tag ID confirmed with LOCalizer Guidance System prior to placement. The skin is prepped and local anesthesia administered. The needle is positioned and RFID tag deployed. Final images demonstrate the LOCalizer RF tag to reside adjacent to the clip The patient tolerated the procedure well and had no immediate complications. Dressing placed and home instructions reviewed. MM/MM RF Tag device RT IMPRESSION: -Status post right breast breast RFID localization. Electronically signed by: Airam Donnelly DO 04/30/2025 11:01 AM EDT
[2025-04-30] MEDS: Lidocaine HCl 1 % 20 ML VIAL 6 ML SUBCUT (10:46)
[2025-04-30] MEDS: Sodium Bicarbonate 8.4% 50 MEQ/50 ML VIAL SUBCUT (10:47)
--- OUTSIDE RECORDS SUMMARY | 2025-04-30 11:06 | XMS_ITS | Clinical Summary ---
Author Organization [facility] Address [address] [place] [address] Care Team Providers Care Diesel Mechanic Helper Name Role Phone Michelle Tripathi MD Primary Care Provider [phone] Allergies Active Allergy Reactions Criticality Noted Date Comments Lidocaine-Menthol 2025 Methyl Salicylate 2025 Penicillin 2025 Medications Eliquis 5 mg tablet Take 1 tablet (5 mg total) by mouth 2 (two) times a day. Active dilTIAZem CD (CARDIZEM CD) 360 mg 24 hr capsule Take 1 capsule (360 mg total) by mouth 1 (one) time each day. Active metoprolol succinate (TOPROL-XL) 25 mg 24 hr tablet Take 1 tablet (25 mg total) by mouth 1 (one) time each day. Active Hospital, Clinic, or Other Facility Administered Medication Ordered Dose Route Frequency Start Date End Date Status lidocaine (XYLOCAINE) 1 % injection 2 mLIndications:Unspec ified rotator cuff tear or rupture of unspecified shoulder, not specified as traumatic,Traumatic incomplete tear of left rotator cuff, initial encounter 2 mL inj Once PRN Procedure 2025 2025 Ended triamcinolone acetonide (KENALOG-40) 40 mg/mL injection 40 mgIndications:Unspec ified rotator cuff tear or rupture of unspecified shoulder, not specified as traumatic,Traumatic incomplete tear of left rotator cuff, initial encounter 40 mg IAtc Once PRN Procedure 2025 2025 Ended Encounters Date Type Department Care Team Description 2025 10:00 AM EDT Consult Orthopedic Surgery - [place] [address] [phone] Hai Vazquez MD Traumatic incomplete tear of left rotator cuff, initial encounter (Primary Dx); Unspecified rotator cuff tear or rupture of unspecified shoulder, not specified as traumatic from Last 3 Months Surgical History Surgery Date Site/Laterality Comments CYST REMOVAL 11/05/2004 - 11/04/2005 sebaceous cyst removal from base of tailbone Medical History Medical History Date Comments Fluttering heart Social History Tobacco Use Types Packs/Day Years Used Date Smoking Tobacco: Never Assessed Comments Unknown Sex and Gender Information Value Date Recorded Sex Assigned at Not on file Legal Sex Female 3:41 PM EDT Gender Identity Not on file Sexual Orientation Not on file Obstetrics History Last Filed Vital Signs Vital Sign Reading Time Taken Comments Blood Pressure - - Pulse - - Temperature - - Respiratory Rate - - Oxygen Saturation - - Inhaled Oxygen Concentration - - Weight 88.9 kg (196 lb) 2025 10:02 AM EDT Height 172.7 cm (5' 8 ) 2025 10:02 AM EDT Body Mass Index 29.8 2025 10:02 AM EDT Plan of Treatment Upcoming Encounters Date Type Department Care Team (Late st Contact Info) Description 06/24/2025 3:00 PM EDT Office Visit Orthopedic Surgery - [place] [address] [phone] Hai Vazquez MD [address] [address] Health Maintenance Due Date Last Done Comments Breast Cancer Screening 1960 DTaP,Tdap,and Td Vaccines (1 - Tdap) 1979 Cervical Cancer Screening: Pap Smear 1981 Pneumococcal Vaccine: 50+ Years (1 of 1 - PCV) 2010 Zoster Vaccines (1 of 2) 2010 COVID-19 Vaccine ( - 2023- season) 2024 07/29/2022, 10/23/2021, 02/16/2021, Additional history exists Depression Screening 09/07/2024 Hepatitis C Screening 09/07/2024 Osteoporosis Screening (Bone Density Screening) 09/07/2024 Social Influencers of Health Screening 09/07/2024 Falls Risk Assessment 2025 Influenza Vaccine (Season Ended) 2025 Colorectal Cancer Screening: FIT-DNA (Cologuard) 01/07/2028 01/06/2025, 01/06/2025, 12/21/2021 RSV Immunization Adult Patients (1 - 1-dose 75+ series) 2035 HIB [...] age to complete this topic Pneumococcal Vaccine: Pediatrics (0 to 5 Years) and At-Risk Patients (6 to 64 Years) Aged Out No longer eligible based on patient's age to complete this topic RSV Immunization Patients Under 20 months Aged Out No longer eligible based on patient's age to complete this topic Varicella Vaccines Aged Out No longer eligible based on patient's age to complete this topic Procedures Procedure Name Priority Date/Time Associated Diagnosis Comments NH ARTHROCENTESIS/ASPI RATION/INJECTION MAJOR JOINT/BURSA W/O U/S GUIDANCE Routine 2025 10:00 AM EDT Unspecified rotator cuff tear or rupture of unspecified shoulder, not specified as traumatic Traumatic incomplete tear of left rotator cuff, initial encounter XR SHOULDER 2+ VIEWS LEFT Routine 2025 9:55 AM EDT Pain from Last 3 Months Results * NH ARTHROCENTESIS/ASPIRATION/INJECTION MAJOR JOINT/BURSA W/O U/S GUIDANCE (2025 10:00 AM EDT) Hai Jimenez MD - 2025 10:00 AM EDT Hai Vazquez MD 2025 11:55 AM L Inj/Asp: L subacromial bursa Indications: pain Details: 21 G needle, posterior approach Medications: 2 mL lidocaine 1 %; 40 mg triamcinolone acetonide 40 mg/mL Informed Consent: Site: Left Subacromial Laterality: Left Relevant images/test results available and reviewed: yes Health status cleared: Yes Procedure/treatment, purpose, treatment alternatives, risks/potential complications and benefits explained: yes Patient questions answered: yes Patient agrees, verbalizes understanding, and wants to proceed: yes Consent given by: Patient Informed consent discussion completed by Physician/FATUMA with patient: Verbal Pre-procedure timeout performed: yes us Hai Vazquez MD IN CLINIC/BEDSIDE ORDERABLES F inal Result * XR Shoulder 2+ Views Left (2025 9:55 AM EDT) Anatomical Region Laterality Modality Upper Extremities, Shoulder Left Comp uted Radiography Narrative 2025 10:15 AM EDT Left shoulder x-rays 2025. AP, Grashey, Y lateral, axillary views. No acute osseous abnormalities. Essentially normal shoulder x-rays. us Hai Vazquez MD IMG XR PROCEDURES Final Result from Last 3 Months Insurance GENERIC Care Teams Diesel Mechanic Helper Relationship Specialty Start Date End Date Michelle Tripathi MD 2 [facility] , [address] [facility] Physician Associ D/B/A: [facility] LISSA Torres PCP - General Internal Medicine 03/18/25
== END 2025-04-30 09:50 | disposition home or self-care (01) ==
LOC: HO.MAMMO 09:49
PROVIDERS: PCP Internal Medicine; Visit Provider Surgery
DX: C50.911 Malignant neoplasm of unspecified site of right female breast (principal)
CPT/HCPCS: 19281; C1819; J2003

== ENCOUNTER → 2025-04-30 10:00 | Outpatient (BNV) | payer OTHER, SELFPAY | PROVIDERS: PCP Internal Medicine; Visit Provider Internal Medicine | DX: D05.11 Intraductal carcinoma in situ of right breast (principal) | CPT/HCPCS: 19281 ==

== ENCOUNTER 2025-05-28 06:42 | Day surgery (SDC) | payer OTHER, SELFPAY ==
--- OUTSIDE RECORDS SUMMARY | 2025-05-04 15:24 | XMS_ITS | Clinical Summary ---
Author Organization [facility] Address [address] [place] [address] Care Team Providers Care Building And Grounds Supervisor Name Role Phone Michelle Tripathi MD Primary Care Provider [phone] Allergies Active Allergy Reactions Criticality Noted Date [...] 10:00 AM EDT Consult Orthopedic Surgery - [place] [address] [phone] Hai Vazquez MD Traumatic incomplete tear of [...] PM EDT Office Visit Orthopedic Surgery - [place] [address] [phone] Hai Vazquez MD [address] [address] Health Maintenance Due Date Last Done Comments [...] Procedure Name Priority Date/Time Associated Diagnosis Comments OR ARTHROCENTESIS/ASPI RATION/INJECTION MAJOR JOINT/BURSA W/O U/S GUIDANCE Routine 2025 10:00 AM EDT Unspecified rotator cuff tear or rupture of unspecified shoulder, not specified as traumatic Traumatic incomplete tear of left rotator cuff, initial encounter XR SHOULDER 2+ VIEWS LEFT Routine 2025 9:55 AM EDT Pain from Last 3 Months Results * OR ARTHROCENTESIS/ASPIRATION/INJECTION MAJOR JOINT/BURSA W/O U/S GUIDANCE (2025 [...] Last 3 Months Insurance GENERIC Care Teams Building And Grounds Supervisor Relationship Specialty Start Date End Date Michelle Tripathi MD 2 [facility] , [address] [facility] Physician Associ D/B/A: [facility] LISSA Torres PCP - General Internal Medicine 03/18/25
[2025-05-22 09:55] VITALS: BMI 30.1
--- NOTE | 2025-05-22 10:06 | HO.ANESPROP2 ---
Documented by User: Michelle Daley NP 05/27/25 10:23 HPI - Anesthesia Eval Consult details Narrative: 65 yr old female for right Breast Lumpectomy w/ localizer. H/O paroxysmal Atrial flutter/afib: Follows with [facility] cards, cleared for surgery 04/17/25, hold eliquis 48 hrs prior. WILEY: on CPAP PMFSH Active Problems Active Problems: All Active Problems (Updated 05/22/25 @ 09:54 by Rachel Nunez RN) Encounter for well woman exam with routine gynecological exam (Acute) Diarrhea (Acute) Atrial flutter (Acute) Right hip pain (Acute) Tachycardia (Acute) Skin lesion (Acute) Rosacea (Acute) Physical exam (Acute) Encounter for annual routine gynecological examination (Acute) Leg edema (Acute) Shortness of breath (Acute) History of syncope (Acute) Invasive ductal carcinoma of breast (Acute) Abnormal mammogram of right breast (Acute) Breast calcification, right (Acute) Obesity (BMI 30-39.9) (Acute) Pure hypercholesterolemia (Acute) Alcohol use (Acute) Lung nodule (Acute) Past Medical History Medical History Skin cancer Hyperlipidemia Atrial flutter Sleep apnea Invasive ductal carcinoma of breast Abnormal mammogram of right breast Breast calcification, right Obesity (BMI 30-39.9) Pure hypercholesterolemia Adopted Alcohol use Lung nodule Overweight (BMI 25.0-29.9) Family History Family History Unknown Adopted Surgical History Surgical History History of sebaceous cyst Social History Social History Housing: Condominium Are you a primary insurance healthcare consultant to a significant other at home: No Do you presently have visiting nurse or other home services: No Alcohol intake: current Alcohol intake frequency: a few times a month Alcohol type: beer Patient Tobacco Use Status: Never used Tobacco e-Cigarette/Vaping Use: Never Used Second Hand Smoke Exposure: No service: No Current occupational status: employed Current occupational exposures/hazards: No Cognitive needs: No Hearing needs: No Vision needs: No Meds Allergies Allergy/AdvReac Type Severity Reaction Status Date / Time Penicillins Allergy Intermediate rash Verified 04/16/25 15:06 menthol (From Icy Hot) Allergy Mild Rash Verified 04/16/25 15:06 methyl salicylate (From Icy Allergy Mild Rash Verified 04/16/25 15:06 Hot) Home Medications ?Medication ?Instructions ?Recorded ?Confirmed ?Last Taken ?Type diltiazem HCl 360 mg 360 mg PO QAM 07/03/24 05/22/25 05/27/25 History capsule,extended release 24 hr metoprolol tartrate 25 mg tablet 25 mg PO BEDTIME 12/30/24 05/22/25 05/27/25 History Exam Height,Weight and Vital Signs: Height 5 ft 8 in Weight 89.811 kg Pertinent Lab Results Pertinent Lab Results: Laboratory Tests 08/23/21 15:40 WBC 6.1 Hgb 13.5 Hct 41.3 Plt Count 309 Narrative Narrative: EKG 07/2024: Sinus bradycards, rate 54, no ST-T wave changes. Echo 05/2024 EF 55-65%, normal wall thickness, no significant valvular disease. Documented by User: Darren Costa MD 05/28/25 09:17 [facility] Past Medical History Medical History Skin cancer Hyperlipidemia Atrial flutter Sleep apnea Invasive ductal carcinoma of breast Abnormal mammogram of right breast Breast calcification, right Obesity (BMI 30-39.9) Pure hypercholesterolemia Adopted Alcohol use Lung nodule Overweight (BMI 25.0-29.9) Functional capacity: independent ambulation Family History Family History Unknown Adopted Family history of problems with anesthesia: No Surgical History Surgical History History of sebaceous cyst History of Problems with Anesthesia: No Social History Social History [facility] Are you a primary insurance healthcare consultant to a significant other at home: No Do you presently have visiting nurse or other home services: No Alcohol intake: current Alcohol intake frequency: a few times a month Alcohol type: beer Patient Tobacco Use Status: Never used Tobacco e-Cigarette/Vaping Use: Never Used Second Hand Smoke Exposure: No service: No Current occupational status: employed Current occupational exposures/hazards: No Cognitive needs: No Hearing needs: No Vision needs: No Meds Allergies Allergy/AdvReac Type Severity Reaction Status Date / Time Penicillins Allergy Intermediate rash Verified 04/16/25 15:06 menthol (From Icy Hot) Allergy Mild Rash Verified 04/16/25 15:06 methyl salicylate (From Icy Allergy Mild Rash Verified 04/16/25 15:06 Hot) Home Medications ?Medication ?Instructions ?Recorded ?Confirmed ?Last Taken ?Type diltiazem HCl 360 mg 360 mg PO QAM 07/03/24 05/22/25 05/27/25 History capsule,extended release 24 hr metoprolol tartrate 25 mg tablet 25 mg PO BEDTIME 12/30/24 05/22/25 05/27/25 History Exam Exam Date and Time: 05/28/25 Airway Mallampati Class: II TM Dist: >3cm Neck ROM: Full Loose/Missing/Broken Teeth: No Heart: rrr Lungs: cta Other: patient is oriented times 3 Assessment and Plan Final Anesthetic Review Family History of Problems with Anesthesia: No History of Problems with Anesthesia: No NPO: Yes ASA Class: II Final Preanesthetic Review: No Changes in Pt Med Stat, Meds/Allgs Chart Reviewed, Consent Obtained/Reviewed and Anes Risks/Benef Reviewed Patient Risk: Low Procedure Risk: Low Anesthetic Plan Anesthetic Plan: GA Disposition: Standard PACU
--- NOTE | ~2025-05-28 | MM_ITS ---
Single right breast specimen radiograph demonstrates the top poultry hatchery laborer clip and the tag within the specimen. Electronically signed by: Airam Donnelly DO 05/28/2025 10:52 AM EDT
--- NOTE | ~2025-05-28 | NM_ITS ---
EXAMINATION: Nuclear medicine sentinel node with imaging. CLINICAL INDICATION: Invasive ductal cancer right breast. COMPARISON: Right mammogram 03/26/2025. TECHNIQUE: Following explaining right breast sentinel node procedure, benefits and risk to the patient a written consent was obtained by Dr. Jeffery pearson. 4% lidocaine jelly was applied on around the right breast areola 30 minutes prior to procedure. The lidocaine jelly around the right breast areola was then cleaned in the usual sterile manner. 1.5 uCi of 99m Tc Tilmanocept was injected subcutaneously in 4 quadrants around the left breast areola and imaging obtained 20 minutes later. Patient tolerated procedure extremely well. FINDINGS/ NM/NM sentinel node w imaging IMPRESSION: There is isotope activity in the 4 quadrants around the right breast areola. There are at least 2 sentinel nodes seen along the right anterior axilla. Faint activity seen slightly superiorly which may represent 2 additional sentinel nodes. No isotope activity seen along inner mammary or lateral thoracic lymph nodes. Electronically signed by: Chilo Keyes MD 05/28/2025 09:24 AM EDT
[2025-05-28] MEDS: Lidocaine 4 % Cream KIT 1 APPL TOPICAL (07:05)
[2025-05-28 07:07] VITALS: BP 127/67; PULSE 70; RESP 16; TEMP 36.4; O2SAT 96
[2025-05-28] MEDS: Lactated Ringers 1,000 ML 100 ML IVCONT (07:13)
--- NOTE | 2025-05-28 07:15 | PC.NURSE ---
patient brought own CPAP. [facility] called for verification, confirmation # [id number].
--- NOTE | 2025-05-28 09:20 | MHC.SHP ---
Pre-Procedural Eval Section A - 24 Hr Update-Section A only Date of Service: 05/28/25 Section B - Complete if H&P > 30 days Chief Complaint: Malignant neoplasm of unspecified site of Details of Present Illness: Has a recently diagnosed invasive ductal carcinoma of the right breast after stereotactic biopsy Relevant Family History (Specify if Yes): No Relevant Social History: None Present Medications: see Short Stay Collaborative assessment Medical History: Significant History (History of atrial flutter, hyperlipidemia, was on anticoagulant) Allergies: Allergies Allergy/AdvReac Type Severity Reaction Status Date / Time Penicillins Allergy Intermediate rash Verified 04/16/25 15:06 menthol (From Icy Hot) Allergy Mild Rash Verified 04/16/25 15:06 methyl salicylate (From Icy Allergy Mild Rash Verified 04/16/25 15:06 Hot) Review of Systems Sugical H&P ROS: Negative: Constitution, Cardiovascular, Respiratory and Gastrointestinal Exam Surgical H&P Exam: Normal: Heart, Normal: Lungs and Normal: Abdomen Plan Diagnosis/Plan: Unchanged I have reviewed the history and physical and performed a pertinent physical examination on my patient. No changes have occurred unless specified. Time Spent With Patient Time: Total time managing care of this patient today ____ minutes.
--- NOTE | 2025-05-28 11:24 | P.OP_ITS ---
Operative Note Operative Note Date of Service: 05/28/25 Narrative: Preop diagnosis: Right breast invasive ductal carcinoma Postop diagnosis: The same Procedure: Lumpectomy, right breast via Hologic localizer, with sentinel node biopsy Surgeon: Jeffery Beltran MD client account assistant: KELTON Tripathi The patient is a 65-year-old female with a recent diagnosis of invasive ductal carcinoma of the right breast. She is here today for lumpectomy with the Hologic localizer and sentinel node biopsy. She had undergone lymphoscintigraphy failure and I had reviewed the images She understands the technique of the planned procedure and was aware of the risks, benefits, and alternatives She was brought to the operating room. She placed supine under general anesthesia via laryngeal mask airway. The right breast and axilla were prepped and draped in the usual sterile fashion. A surgical time-out was done. The procedure of cefazolin 2 g IV preoperatively I marked the line of incision with lidocaine 1%. This was on the superior aspect of breast based on the signals with the Hologic localizer. I made the incision transversely with a blade 15. This carried down through the full- thickness of the skin and subcutaneous fat with electrocautery. I then proceeded to gently divide through the breast tissue circumferentially with the curved Hernandez scissors, periodically checking with the Hologic localizer to make sure that we were including the RF ID clip with the specimen. I dissected circumferentially until we are able to excise this entire lump. Immediate re- ray in the OR confirmed good position of the biopsy clip as well as the RF ID clip within the specimen. The specimen was then sent for immediate gross pathology. I copiously irrigated. I did not feel any other induration around the margins. I reapposed the breast tissue with simple interrupted Polysorb 3-0 sutures and proceeded to do the sentinel node biopsy. We changed gloves and set up at this time to do the sentinel node biopsy. I with the planned line of incision with the axilla based on the signals from the gamma probe. I infiltrated the area with lidocaine 1%. I made a short incision with a blade 15 and this was carried down through the full-thickness of the skin and subcutaneous fat . I opened up the fascia of the axilla. I then periodically used the gamma probe to identify elevated counts within the axillary fat pad. I was able to 1st identify 1 lymph node and this was gently d issected Metzenbaum scissors and was excised completely. A 2nd sentinel node was also utilized with elevated counts with the gamma probe. This has also excised in the same fashion Multiple scanning of the axillary he had did not reveal any elevated background radiation. Furthermore, review of the scintigraphy earlier showed 2 lymph nodes in the axilla. Carpenter node 1 had a count of over 1800 Carpenter node 2 had a count of over 1800 Once we confirmed that there were no other elevated counts with the gamma probe in the axilla, we confirmed hemostasis. Once hemostasis was confirmed, we reapposed deep subcutaneous tissue with Polysorb 3-0 simple interrupted sutures. Skin closure was achieved with Polysorb 4-0 subcuticular running stitch I then went down stairs to review the specimen with the pathology. It appeared that the lesion was then has been but may be a little close on the posterior aspect I went back to the OR and prescribed. I proceeded to then more of the posterior margins using Hernandez scissors from the lumpectomy cavity I irrigated. Once hemostasis was confirmed, we reapposed deep breast tissue again with Polysorb 3-0 simple interrupted sutures. Skin closure was achieved with Polysorb 4-0 subcuticular running sutures Both skin incisions were closed with Polysorb 4-0 subcuticular running sutures. Both areas were infiltrated with Marcaine 0.5% for postop analgesia. Dressings were applied and the procedure was completed The patient tolerated procedure well. There were no immediate complications. Initial and final counts of sponges and instruments were correct. Estimated blood loss was about 25 cc The patient was extubated without difficulty and transferred to the recovery room with stable vital signs. Breast Carpenter Node Biopsy Substrate(s) used for sentinel node biopsy in the non-neoadjuvant setting: Radiotracer Substrate(s) used for sentinel node biopsy in the neoadjuvant setting: N/A All colored nodes or non-colored nodes present at the end of a dye filled lymphatic channel were removed, if dye was used as the substrate for localization: N/A All significantly radioactive nodes were removed, if radionuclide was used as the substrate for localization: Yes All palpably suspicious nodes were removed, if present: N/A If clips were placed in pathology-involved nodes, those nodes were identified and removed: N/A Procedure performed with curative intent?: Yes General Surg. - Synoptic Notes Breast Carpenter Node Biopsy Substrate(s) used for sentinel node biopsy in the non-neoadjuvant setting: Radiotracer Substrate(s) used for sentinel node biopsy in the neoadjuvant setting: N/A All colored nodes or non-colored nodes present at the end of a dye filled lymphatic channel were removed, if dye was used as the substrate for localization: N/A All significantly radioactive nodes were removed, if radionuclide was used as the substrate for localization: Yes All palpably suspicious nodes were removed, if present: N/A If clips were placed in pathology-involved nodes, those nodes were identified and removed: N/A Procedure performed with curative intent?: Yes
[2025-05-28 11:44] VITALS: BP 110/59; PULSE 80; RESP 16; TEMP 36.7; O2SAT 98
[2025-05-28 11:49] VITALS: BP 114/61; PULSE 75; RESP 11; O2SAT 99
[2025-05-28 11:54] VITALS: BP 129/68; PULSE 74; RESP 12; O2SAT 99
[2025-05-28 12:01] VITALS: BP 125/70; PULSE 68; RESP 12; O2SAT 99
[2025-05-28 12:17] VITALS: BP 131/68; PULSE 70; RESP 16; TEMP 36.9; O2SAT 96
== END 2025-05-28 12:51 | disposition home or self-care (01) ==
PROVIDERS: PCP Internal Medicine; Visit Provider Surgery
PROC: (CPT 19301; principal; 2025-05-28 10:40)
PROC: (CPT 19301; 2025-05-28 10:40)
DX: D05.81 Other specified type of carcinoma in situ of right breast (principal); Z17.0 Estrogen receptor positive status [ER+]; Z17.21 Progesterone receptor positive status; Z17.32 Human epidermal growth factor receptor 2 negative status; N60.11 Diffuse cystic mastopathy of right breast; E78.00 Pure hypercholesterolemia, unspecified; I48.92 Unspecified atrial flutter; E78.5 Hyperlipidemia, unspecified; R60.0 Localized edema; G47.33 Obstructive sleep apnea (adult) (pediatric); R91.1 Solitary pulmonary nodule; E66.3 Overweight; Z68.30 Body mass index [BMI] 30.0-30.9, adult; F10.90 Alcohol use, unspecified, uncomplicated; Z79.01 Long term (current) use of anticoagulants; Z79.899 Other long term (current) drug therapy; Z99.89 Dependence on other enabling machines and devices; Z88.0 Allergy status to penicillin
CPT/HCPCS: 19301; 38525; 38900; 78195; 88307; 88341; 88342; 88360; A9520; J0690; J1100; J1885; J2003; J2250; J2405; J2704; J2795; J3010

== ENCOUNTER → 2025-05-28 06:42 | Outpatient (BNV) | payer OTHER, SELFPAY | PROVIDERS: PCP Internal Medicine; Visit Provider Surgery | DX: C50.911 Malignant neoplasm of unspecified site of right female breast (principal) | CPT/HCPCS: 19301; 38525; 38900 ==

== ENCOUNTER → 2025-05-28 07:47 | Outpatient (BNV) | payer OTHER, SELFPAY | PROVIDERS: PCP Internal Medicine; Visit Provider Radiology Diagnostic Radiology | DX: D05.11 Intraductal carcinoma in situ of right breast (principal) | CPT/HCPCS: 78195 ==

== ENCOUNTER 2025-06-10 09:50 | Outpatient (AMB) | payer OTHER, SELFPAY ==
--- NOTE | 2025-06-10 09:53 | MHC.OFFVIS ---
Vital Signs 06/10/25 10:00 Weight 203 lb BP 111/57 L Blood Pressure Location Rt brachial Position Sitting Pulse 65 Intake Visit Reasons: S/P Rt. brst lumpectomy w/localizer & SN bx Intake Note: Patient here s/p Breast, right, lumpectomy & SN bx on 05-28-2025. Patient c/o: incision feels lumpy. Never took rx pain meds. Purchasing Agent Required: No Accompanied by: friend Katrin Allergies Penicillins Allergy (Intermediate, Verified 06/10/25 09:54) rash menthol (From Icy Hot) Allergy (Mild, Verified 06/10/25 09:54) Rash methyl salicylate (From Icy Hot) Allergy (Mild, Verified 06/10/25 09:54) Rash HPI HPI S/P Rt. brst lumpectomy w/localizer & SN bx: Details: She is here for follow-up after lumpectomy and sentinel node biopsy. She had a stereotactic biopsy in April 2025 showing invasive ductal carcinoma and DCIS so she underwent lumpectomy with the Hologic localizer and sentinel node biopsy last 05/28/2025. She tolerated the procedure well She says she is doing well overall. She denies any significant pain or any wound complications. [facility] Medical History Skin cancer Hyperlipidemia Atrial flutter Sleep apnea Invasive ductal carcinoma of breast Abnormal mammogram of right breast Breast calcification, right Obesity (BMI 30-39.9) Pure hypercholesterolemia Adopted Alcohol use Lung nodule Overweight (BMI 25.0-29.9) Surgical History History of sebaceous cyst Family History Unknown Adopted Social History Housing: Condominium Are you a primary careers adviser to a significant other at home: No Do you presently have visiting nurse or other home services: No Alcohol intake: current Alcohol intake frequency: a few times a month Alcohol type: beer Patient Tobacco Use Status: Never used Tobacco e-Cigarette/Vaping Use: Never Used Second Hand Smoke Exposure: No service: No Current occupational status: employed Current occupational exposures/hazards: No Cognitive needs: No Hearing needs: No Vision needs: No Review of Systems Const Denies chills and Denies fever(s) Card Denies chest pain, Denies dyspnea and Denies dyspnea on exertion Resp Denies cough, Denies dyspnea and Denies dyspnea on exertion GI Denies hematochezia and Denies change in bowel habits Denies hematuria Musc Denies back pain and Denies limited range of motion Neuro Denies focal weakness and Denies convulsions Psych Denies depression and Denies mood swings Physical Exam Vital Signs: Last Vital Signs Pulse 65 06/10/25 10:00 BP 111/57 L 06/10/25 10:00 Const General: comfortable and no acute distress Chest Other: Lumpectomy and sentinel node biopsy sites on the right breast are both well healed, not infected, no hematoma, no cellulitis Assessment & Plan Assessment & Plan (1) Invasive ductal carcinoma of breast: Code(s): C50.919 - Malignant neoplasm of unspecified site of unspecified female breast Category: Medical Plan: She is status post lumpectomy and sentinel biopsy for invasive ductal carcinoma of the right breast. Her final path report after lumpectomy shows DCIS, with negative margins, and no residual invasive carcinoma. Two sentinel nodes removed were negative for metastatic carcinoma. She therefore has a T1 N0 invasive ductal carcinoma, ERPR positive, HER2 negative, adequately excised. I will refer her to the oncologist for hormonal treatment. She will also benefit from radiation therapy after lumpectomy to complete treatment I will see her here in the office in about 6 months. She understands the plan well and is comfortable with this. Orders: Referrals Hematology & Oncology Referral C50.919 - Malignant neoplasm of unspecified site of unspecified female breast Coding Level of Care Code Global (05894) Diagnoses Invasive ductal carcinoma of breast C50.919
[2025-06-10 10:00] VITALS: BP 111/57; PULSE 65
--- OUTSIDE RECORDS SUMMARY | 2025-06-10 10:20 | XMS_ITS | Clinical Summary ---
Author Organization [facility] Address [address] [place] [address] Care Team Providers Care Grain Cleaner And Transfer Operator Name Role Phone Michelle Tripathi MD Primary Care Provider [phone] Allergies Active Allergy Reactions Criticality Noted Date [...] mouth 1 (one) time each day. Active Encounters Date Type Department Care Team Description 2025 10:00 AM EDT Consult Orth[facility] Surgery - [place] [address] [place] [address] [place] [id number] Hai Vazquez MD Traumatic incomplete tear of [...] PM EDT Office Visit Orthopedic Surgery - [place] [address] [facility] [address] [place] [address] Hai Vazquez MD 175 [facility] [address] [place] [address] Health Maintenance Due Date Last Done Comments Breast Cancer Screening 1960 DTaP,Tdap,and Td Vaccines (1 - Tdap) 1979 Cervical Cancer Screening: Pap Smear 1981 Pneumococcal Vaccine: 50+ Years (1 of 1 - PCV) 2010 Zoster Vaccines (1 of 2) 2010 COVID-19 Vaccine ( - 2023- season) 2024 07/29/2022, 10/23/2021, 02/16/2021, Additional history exists Hepatitis C Screening 09/07/2024 Osteoporosis Screening (Bone Density Screening) 09/07/2024 Social Influencers of Health Screening 09/07/2024 Depression Screening 11/05/2024 Falls Risk Assessment 2025 Influenza Vaccine (#1) 2025 Colorectal Cancer Screening: FIT-DNA (Cologuard) 01/07/2028 [...] Procedure Name Priority Date/Time Associated Diagnosis Comments DC ARTHROCENTESIS/ASPI RATION/INJECTION MAJOR JOINT/BURSA W/O U/S GUIDANCE Routine 2025 10:00 AM EDT Unspecified rotator cuff tear or rupture of unspecified shoulder, not specified as traumatic Traumatic incomplete tear of left rotator cuff, initial encounter XR SHOULDER 2+ VIEWS LEFT Routine 2025 9:55 AM EDT Pain from Last 3 Months Results * DC ARTHROCENTESIS/ASPIRATION/INJECTION MAJOR JOINT/BURSA W/O U/S GUIDANCE (2025 10:00 AM EDT) Narrative Hai Vazquez MD - 2025 10:00 AM EDT Hai [...] acute osseous abnormalities. Essentially normal shoulder x-rays. Hai Vazquez MD IMG XR PROCEDURES Final Result from Last 3 Months Insurance GENERIC Care Teams Grain Cleaner And Transfer Operator Relationship Specialty Start Date End Date Michelle Tripathi MD [address] [place] [address] , [address] Physician Associ D/B/A: [facility] LISSA Torres PCP - General Internal Medicine 03/18/25
== END 2025-06-10 10:13 | disposition home or self-care (01) ==
LOC: HO.HGS 09:51
PROVIDERS: PCP Internal Medicine; Visit Provider Surgery
DX: C50.919 Malignant neoplasm of unspecified site of unspecified female breast (principal)
CPT/HCPCS: 99024

== ENCOUNTER → 2025-06-19 12:58 | Outpatient (BNV) | payer OTHER, SELFPAY | PROVIDERS: Visit Provider Internal Medicine | DX: D05.11 Intraductal carcinoma in situ of right breast (principal) | CPT/HCPCS: 99204 ==

== ENCOUNTER 2025-08-31 16:19 | Outpatient (AMB) | payer OTHER, SELFPAY ==
--- OUTSIDE RECORDS SUMMARY | 2025-08-25 08:10 | XMS_ITS | Encounter Summary ---
Author Organization [facility] Address [address] [place] [address] Care Team Providers Care Metal Alloy Scientist Name Role Phone Michelle Tripathi MD Primary Care Provider [phone] Encounter Details Date Type Department Care Team (Latest Contact Info) Description 08/25/2025 8:10 AM EDT - 08/25/2025 11:59 PM EDT Hospital Encounter [facility] Radiation Oncology [address] [place] [phone] Discharge Disposition: Home or Self Care Social History Tobacco Use Types Packs/Day Years Used Date Smoking Tobacco: Never Alcohol Use Standard Drinks/Week Comments Yes 5 (1 standard drink = 0.6 oz pur e alcohol) Comments Unknown Sex and Gender Information Value Date Recorded Sex Assigned at Not on file Legal Sex Female 3:41 PM EDT Gender Identity Female 06/23/2025 6:25 PM EDT Sexual Orientation Not on file documented as of this encounter Medications at Time of Discharge dilTIAZem CD (CARDIZEM CD) 360 mg 24 hr capsule Take 1 capsule (360 mg total) by mouth 1 (one) time each day. Eliquis 5 mg tablet Take 1 tablet (5 mg total) by mouth 2 (two) times a day. metoprolol succinate (TOPROL-XL) 25 mg 24 hr tablet Take 1 tablet (25 mg total) by mouth 1 (one) time each day. ondansetron ODT (ZOFRAN-ODT) 4 mg disintegrating tablet DISSOLVE 1 TABLET BY MOUTH EVERY 6 HOURS NEEDED FOR NAUSEA AND VOMITING 05/28/2025 oxyCODONE-acetaminop hen (PERCOCET) 5-325 mg per tablet 05/28/2025 documented as of this encounter Discharge Disposition Disposition Code Departure Means Destination Home or Self Care documented in this encounter Plan of Treatment Upcoming Encounters Date Type Department Care Team (Late st Contact Info) Description 10/06/2025 3:00 PM EST Appointment [facility] Radiation Oncology [address] [place] [phone] Zenia Sal NP [address] [place] [address] documented as of this encounter Procedures Procedure Name Priority Date/Time Associated Diagnosis Comments RAD ONC MSQ TREATMENT SUMMARY Routine 08/25/2025 8:21 AM EDT documented in this encounter Results * Rad Onc Msq Treatment Summary (08/25/2025 8:21 AM EDT) Treatment Site Right breast MO SAIQ RADIATION ONCOLOGY Course Number 1 MOSAIQ RADIATION ONCOLOGY Prescribed Fractional Dose 267 cGray MOSAIQ RADIATION ONCOLOGY Prescribed Total Dose 4,272 cGray MOSAIQ RADIATION ONCOLOGY Actual Fractions Delivered 16 MOSAIQ RADIATION ONCOLOGY Actual Session Delivered Dose 267 cGray MOSAIQ RADIATION ONCOLOGY Actual Total Dose 4,272 cGray MOSAIQ RADIATION ONCOLOGY Prescribed Technique Tangents MOSAIQ RADIATION ONCOLOGY Elapsed Days 21 MOSAIQ RADIATION ONCOLOGY Start Date 08/04/2025 MOSAIQ RADIATION ONCOLOGY Last Date 08/25/2025 MOSAIQ RADIATION ONCOLOGY Prescribed Number of Fractions 16 MOSAIQ RADIATION ONCOLOGY 08/25/2025 8:21 AM EDT us Physician Radiation Oncology RADIATION ONCOLO GY ORDERABLES Final Result MOSAIQ RADIATION ONCOLOGY documented in this encounter Visit Diagnoses Not on filedocumented in this encounter Care Teams Metal Alloy Scientist Relationship Specialty Start Date End Date Michelle Tripathi MD [address] [place] [address] , [address] [place] [address] Physician Associ D/B/A: [facility] LISSA Torres PCP - General Internal Medicine 03/18/25 documented as of this encounter
--- OUTSIDE RECORDS SUMMARY | 2025-08-26 08:15 | XMS_ITS | Encounter Summary ---
Author Organization [facility] Address [address] [place] [address] Care Team Providers Care Oracle Database Analyst Name Role Phone Michelle Tripathi MD Primary Care Provider [phone] Encounter Details Date Type Department Care Team (Latest Contact Info) Description 08/26/2025 8:15 AM EDT - 08/26/2025 11:59 PM EDT Hospital Encounter [facility] Radiation Oncology [address] [place] [phone] Discharge Disposition: Home or Self Care Social [...] Info) Description 10/06/2025 3:00 PM EST Appointment [facility] Radiation Oncology [address] [place] [phone] Zenia Sal, RADHA [address] [place] [address] documented as of this encounter Procedures Procedure Name Priority Date/Time Associated Diagnosis Comments RAD ONC MSQ TREATMENT SUMMARY Routine 08/26/2025 8:37 AM EDT documented in this encounter Results * Rad Onc Msq Treatment Summary (08/26/2025 8:37 AM EDT) Treatment Site Right breast boost MOSAIQ RADIATION ONCOLOGY Course Number 1 MOSAIQ RADIATION ONCOLOGY Prescribed Fractional Dose 250 cGray MOSAIQ RADIATION ONCOLOGY Prescribed Total Dose 1,000 cGray MOSAIQ RADIATION ONCOLOGY Actual Fractions Delivered 1 MOSAIQ RADIATION ONCOLOGY Prescription Pattern Comment Free Breathing MOSAIQ RADIATION ONCOLOGY Actual Session Delivered Dose 250 cGray MOSAIQ RADIATION ONCOLOGY Actual Total Dose 250 cGray MOSAIQ RADIATION ONCOLOGY Prescribed Technique VIETNAMESE/RPO MOSAIQ RADIATION ONCOLOGY Elapsed Days 0 MOSAIQ RADIATION ONCOLOGY Start Date 08/26/2025 MOSAIQ RADIATION ONCOLOGY Last Date 08/26/2025 MOSAIQ RADIATION ONCOLOGY Prescribed Number of Fractions 4 MOSAIQ RADIATION ONCOLOGY 08/26/2025 8:37 AM EDT Physician Radiation Oncology RADIATION ONCOLO GY ORDERABLES Final Result MOSAIQ RADIATION ONCOLOGY documented in this encounter Visit Diagnoses Not on filedocumented in this encounter Care Teams Oracle Database Analyst Relationship Specialty Start Date End Date Michelle Tripathi MD [address] [place] [address] , [address] [facility] D/B/A: [facility] LISSA Torres PCP - General Internal Medicine 03/18/25 documented as of this encounter
--- OUTSIDE RECORDS SUMMARY | 2025-08-26 08:37 | XMS_ITS | Encounter Summary ---
Author Organization [employer] [facility] Address [address] [place] [address] Care Team Providers Care Structural Steel Erection Supervisor Name Role Phone Michelle Tripathi MD Primary Care Provider [phone] Encounter Details Date Type Department Care Team (Latest Contact Info) Description 08/26/2025 8:37 AM EDT - 08/26/2025 11:59 PM EDT Hospital Encounter [facility] Radiation Oncology [address] [place] [phone] Blade Van MD [address] [place] [address] Discharge Disposition: Home or Self Care Social [...] Info) Description 10/06/2025 3:00 PM EST Appointment [facility] Radiation Oncology [address] [place] [address] Zenia Sal NP [address] [place] [address] documented as of this encounter Visit Diagnoses Not on filedocumented in this encounter Care Teams Structural Steel Erection Supervisor Relationship Specialty Start Date End Date Michelle Tripathi MD [address] [place] [address] , [address] [facility] Physician Associ D/B/A: [facility] [place] PCP - General Internal Medicine 03/18/25 documented as of this encounter
--- OUTSIDE RECORDS SUMMARY | 2025-08-27 08:15 | XMS_ITS | Encounter Summary ---
Author Organization [facility] Address [address] [place] [address] Care Team Providers Care Bridge Game Director Name Role Phone Michelle Tripathi MD Primary Care Provider Encounter Details Date Type Department Care Team (Latest Contact Info) Description 08/27/2025 8:15 AM EDT - 08/27/2025 11:59 PM EDT Hospital Encounter [facility] Radiation Oncology [address] [place] [phone] Discharge Disposition: Home or Self Care Social [...] Info) Description 10/06/2025 3:[address] [facility] Radiation Oncology [address] [place] [phone] Zenia aSl, RADHA [address] [place] [address] documented as of this encounter Procedures Procedure Name Priority Date/Time Associated Diagnosis Comments RAD ONC MSQ TREATMENT SUMMARY Routine 08/27/2025 8:29 AM EDT documented in this encounter Results * Rad Onc Msq Treatment Summary (08/27/2025 8:29 AM EDT) Treatment Site Right breast boost MOSAIQ RADIATION ONCOLOGY Course Number 1 MOSAIQ RADIATION ONCOLOGY Prescribed Fractional Dose 250 cGray MOSAIQ RADIATION ONCOLOGY Prescribed Total Dose 1,000 cGray MOSAIQ RADIATION ONCOLOGY Actual Fractions Delivered 2 MOSAIQ RADIATION ONCOLOGY Prescription Pattern Comment Free Breathing MOSAIQ RADIATION ONCOLOGY Actual Session Delivered Dose 250 cGray MOSAIQ RADIATION ONCOLOGY Actual Total Dose 500 cGray MOSAIQ RADIATION ONCOLOGY Prescribed Technique ROMANSH/RPO MOSAIQ RADIATION ONCOLOGY Elapsed Days 1 MOSAIQ RADIATION ONCOLOGY Start Date 08/26/2025 MOSAIQ RADIATION ONCOLOGY Last Date 08/27/2025 MOSAIQ RADIATION ONCOLOGY Prescribed Number of Fractions 4 MOSAIQ RADIATION ONCOLOGY 08/27/2025 8:29 AM EDT Physician Radiation Oncology RADIATION ONCOLO GY ORDERABLES Final Result MOSAIQ RADIATION ONCOLOGY documented in this encounter Visit Diagnoses Not on filedocumented in this encounter Care Teams Bridge Game Director Relationship Specialty Start Date End Date Michelle Tripathi MD [address] [place] [address] , [address] [facility]ician [facility] D/B/A: [facility] LISSA Torres PCP - General Internal Medicine 03/18/25 documented as of this encounter
--- OUTSIDE RECORDS SUMMARY | 2025-08-28 08:18 | XMS_ITS | Encounter Summary ---
Author Organization [facility] [place] [address] Care Team Providers Care Insurance Account Executive Name Role Phone Michelle Tripathi MD Primary Care Provider [phone] Encounter Details Date Type Department Care Team (Late st Contact Info) Description 08/28/2025 8:18 AM EDT Hospital Encounter [facility] Radiation Oncology [address] [place] [phone] Social History Tobacco Use Types Packs/Day Years [...] on file documented as of this encounter Plan of Treatment Upcoming Encounters Date Type Department Care Team (Late st Contact Info) Description 10/06/2025 3:00 PM EST Appointment [facility] Radiation Oncology [address] [place] [phone] Zenia Sal NP [address] [place] [address] documented as of this encounter Procedures Procedure Name Priority Date/Time Associated Diagnosis Comments RAD ONC MSQ TREATMENT SUMMARY Routine 08/28/2025 8:34 AM EDT documented in this encounter Results * Rad Onc Msq Treatment Summary (08/28/2025 8:34 AM EDT) Treatment Site Right breast boost MOSAIQ RADIATION ONCOLOGY Course Number 1 MOSAIQ RADIATION ONCOLOGY Prescribed Fractional Dose 250 cGray MOSAIQ RADIATION ONCOLOGY Prescribed Total Dose 1,000 cGray MOSAIQ RADIATION ONCOLOGY Actual Fractions Delivered 3 MOSAIQ RADIATION ONCOLOGY Prescription Pattern Comment Free Breathing MOSAIQ RADIATION ONCOLOGY Actual Session Delivered Dose 250 cGray MOSAIQ RADIATION ONCOLOGY Actual Total Dose 750 cGray MOSAIQ RADIATION ONCOLOGY Prescribed Technique JORDAN/RPO MOSAIQ RADIATION ONCOLOGY Elapsed Days 2 MOSAIQ RADIATION ONCOLOGY Start Date 08/26/2025 MOSAIQ RADIATION ONCOLOGY Last Date 08/28/2025 MOSAIQ RADIATION ONCOLOGY Prescribed Number of Fractions 4 MOSAIQ RADIATION ONCOLOGY 08/28/2025 8:34 AM EDT Physician Radiation Oncology RADIATION ONCOLO GY ORDERABLES Final Result MOSAIQ RADIATION ONCOLOGY documented in this encounter Visit Diagnoses Not on filedocumented in this encounter Care Teams Insurance Account Executive Relationship Specialty Start Date End Date Michelle Tripathi MD [address] [facility] , [address] [facility] Physician Associ D/B/A: [facility] LISSA Torres PCP - General Internal Medicine 03/18/25 documented as of this encounter
--- OUTSIDE RECORDS SUMMARY | 2025-08-31 08:18 | XMS_ITS | Encounter Summary ---
Author Organization [facility] [place] [address] Care Team Providers Care Tearoom Host Name Role Phone Michelle Tripathi MD Primary Care Provider [phone] Encounter Details Date Type Department Care Team (Late st Contact Info) Description 08/31/2025 8:18 AM EDT Hospital Encounter [facility] Radiation Oncology [address] [place] [phone] Social History Tobacco Use Types Packs/Day Years [...] Info) Description 10/06/2025 3:00 PM EST Appointment [facility] Radiation Oncology [address] [place] [phone] Zenia Sal NP [address] [place] [address] documented as of this encounter Procedures Procedure Name Priority Date/Time Associated Diagnosis Comments RAD ONC MSQ TREATMENT SUMMARY Routine 08/31/2025 8:37 AM EDT documented in this encounter Results * Rad Onc Msq Treatment Summary (08/31/2025 8:37 AM EDT) Treatment Site Right breast boost MOSAIQ RADIATION ONCOLOGY Course Number 1 MOSAIQ RADIATION ONCOLOGY Prescribed Fractional Dose 250 cGray MOSAIQ RADIATION ONCOLOGY Prescribed Total Dose 1,000 cGray MOSAIQ RADIATION ONCOLOGY Actual Fractions Delivered 4 MOSAIQ RADIATION ONCOLOGY Prescription Pattern Comment Free Breathing MOSAIQ RADIATION ONCOLOGY Actual Session Delivered Dose 250 cGray MOSAIQ RADIATION ONCOLOGY Actual Total Dose 1,000 cGray MOSAIQ RADIATION ONCOLOGY Prescribed Technique ST HELENIAN/RPO MOSAIQ RADIATION ONCOLOGY Elapsed Days 5 MOSAIQ RADIATION ONCOLOGY Start Date 08/26/2025 MOSAIQ RADIATION ONCOLOGY Last Date 08/31/2025 MOSAIQ RADIATION ONCOLOGY Prescribed Number of Fractions 4 MOSAIQ RADIATION ONCOLOGY 08/31/2025 8:37 AM EDT Physician Radiation Oncology RADIATION ONCOLO GY ORDERABLES Final Result MOSAIQ RADIATION ONCOLOGY documented in this encounter Visit Diagnoses Not on filedocumented in this encounter Care Teams Tearoom Host Relationship Specialty Start Date End Date Michelle Tripathi MD [address] [facility] , [address] [facility] Physician Associ D/B/A: [facility] LISSA Torres PCP - General Internal Medicine 03/18/25 documented as of this encounter
--- OUTSIDE RECORDS SUMMARY | 2025-08-31 08:35 | XMS_ITS | Encounter Summary ---
Author Organization [employer] Address [address] [place] [address] Care Team Providers Care Senior Salesforce Developer Name Role Phone Michelle Tripathi MD Primary Care Provider [phone] Reason for Visit * Reason Comments OTV Encounter Details Date Type Department Care Team (Latest Contact Info) Description 08/31/2025 8:35 AM EDT Hospital Encounter [facility] Radiation Oncology [address] [place] [phone] Blade Van MD [address] [place] [address] Infiltrating ductal carcinoma of right breast (CMS/HCC V24, CMS/HCC V28) (Primary Dx) Social History Tobacco Use Types Packs/Day Years [...] on file documented as of this encounter Progress Notes * Bell Jean Baptiste RN - 08/31/2025 8:35 AM EDT Discharge Instructions after Radiation Treatments Side effects present at the end of treatment will usually improve in a few weeks. If you developed a skin reaction, it may continue to worsen for the next 7-10 days. Continue to be gentle with your skin. Your skin will be more sensitive to sunburn. Protect yourself from the sun. If needed, use sunscreen at least SPF 30. Fatigue and weakness may continue for several weeks. Be sure to get plenty of rest. Plan your activities accordingly. Continue healthy eating habits. Stay well hydrated, drink plenty of fluids. Follow-up visits will be scheduled so your Radiation physician can monitor your progress. Follow up in 4 - 6 weeks. Go to front desk manager for follow up appointment. Please call [phone] and select option #2 with any questions or concerns prior to your next visit. * Blade Van MD - 08/31/2025 8:35 AM EDT Radiation Oncology On Treatment Visit Patient Name: Yesenia Levin Date of : 1960 Attending Provider: Blade Van MD Encounter Date: 08/31/2025 Diagnosis: No diagnosis found. Staging Info: Cancer Staging No matching staging information was found for the patient. Interval/Dose History: Radiation Therapy: Breast Treatment Period Technique Fraction Dose Fractions Total Dose Course 1 08/04/2025-08/31/2025 (days elapsed: 27) Right breast 08/04/2025-08/25/2025 Tangents 267 / 267 cGy / 16 4,272 / 4,272 cGy Right breast boost 08/26/2025-08/31/2025 BOTSWANAN/RPO 250 / 250 cGy 4 / 4 1,000 / 1,000 cGy Subjective: Using hydrocortisone as instructed. Still itches. Feels the redness has gotten worse. Vitals Visit Vitals Smoking Status Never Objective including Physical Exam: Light erythema with follicular reaction primarily UIQ and IMF. Lab Results: none Treatment Tolerance: Tolerating ok. Typical reaction Assessment/Plan: Cont Hydrocortisone for as long as it itches. Cont Aquaphor atleast daily. No orders of the defined types were placed in this encounter. I have reviewed portal images. The Karnofsky performance scale today is 100, Fully active, able to carry on all pre-disease performed without restriction (ECOG equivalent 0). Blade Van MD 08/31/2025 8:53 AM EDT * Bell Jean Baptiste, RN - 08/31/2025 8:35 AM EDT Pt completed treatment. I reviewed allergies and medications. I reviewed discharge instructions andfollow up in 4 - 6 week. I instructed to call with any questions or concerns. documented in this encounter Plan of Treatment Upcoming Encounters Date Type Department Care Team (Late st Contact Info) Description 10/06/2025 3:00 PM EST Appointment [facility] Radiation Oncology [address] [place] [phone] Zenia Sal NP [address] [place] [address] documented as of this encounter Visit Diagnoses Diagnosis Infiltrating ductal carcinoma of right breast (CMS/HCC V24, CMS/HCC V28)- Primary documented in this encounter Care Teams Senior Salesforce Developer Relationship Specialty Start Date End Date Michelle Tripathi MD [address] [place] [address] , [facility] [address] [facility] Physician Associ D/B/A: [facility] [place] PCP - General Internal Medicine 03/18/25 documented as of this encounter
--- NOTE | 2025-08-31 16:21 | A.OFFPC_ITS ---
Vital Signs 08/31/25 16:22 Height 5 ft 8 in Weight 206 lb 8 oz BMI 31.4 BP 130/76 Blood Pressure Location Lt brachial Position Sitting Pulse 65 Pulse Source Pulse Oximeter Pulse Oximetry (%) 98 Oxygen Delivery Method Room Air Intake Visit Reasons: Severe anxiety Supervisor Personnel Clerks Required: No Accompanied by: Self / Same As Patient Allergies Penicillins Allergy (Intermediate, Verified 08/31/25 16:31) rash menthol (From Icy Hot) Allergy (Mild, Verified 08/31/25 16:31) Rash methyl salicylate (From Icy Hot) Allergy (Mild, Verified 08/31/25 16:31) Rash Medication List - Last Reconciled 08/31/25 by Michelle Tripathi MD apixaban (Eliquis) 5 mg PO BID 90 days diltiazem HCl CD 360 mg PO QAM letrozole 2.5 mg PO DAILY metoprolol tartrate 25 mg PO BEDTIME Tobacco use date assessed: 08/31/25 Fall risk assessment: No Falls in past year Last assessed Fall Risk: 08/31/25 Dental Screening Dental Screen Date: 08/31/25 Did you have a dental visit in the last 12 months?: Yes Did you have a dental problem in the last 6 months where you did not have access to dental care?: No Was dental information given to patient?: Patient has dentist HPI HPI Comments History of Present Illness Details The patient is a 65-year-old female presenting for evaluation of anxiety and panic attacks. She reports experiencing three panic attacks since beginning radiation therapy, with the first occurring immediately after her initial treatment. Symptoms during these episodes include nausea, sweating, vomiting, chest tightness, and a sensation of dying, with episodes lasting for a couple of hours. The patient also recalls an emergency room visit in the fall of last year for symptoms she now believes constituted a panic attack, during which a medical workup was normal. The patient has a history of breast cancer and underwent a lumpectomy in May of this year. She recently completed her course of radiation therapy and did not require chemotherapy. She is on letrozole as a long-term treatment. Her medical history is also significant for atrial flutter. Her current medications include Eliquis, diltiazem, letrozole, and metoprolol. She has known allergies to penicillin and menthol. [facility] Medical History (Updated 08/31/25 @ 20:28 by Michelle Tripathi MD) Skin cancer Hyperlipidemia Atrial flutter Sleep apnea Invasive ductal carcinoma of breast Abnormal mammogram of right breast Breast calcification, right Obesity (BMI 30-39.9) Pure hypercholesterolemia Adopted Alcohol use Lung nodule Overweight (BMI 25.0-29.9) Surgical History History of sebaceous cyst Family History Unknown Adopted Social History Household Members: None Housing: Condominium Are you a primary healthcare network consultant to a significant other at home: No Do you presently have visiting nurse or other home services: No Alcohol intake: current Alcohol intake frequency: a few times a month Alcohol type: beer Patient Tobacco Use Status: Never used Tobacco e-Cigarette/Vaping Use: Never Used Second Hand Smoke Exposure: No service: No Current occupational status: employed Current occupational exposures/hazards: No Cognitive needs: No Hearing needs: No Vision needs: No Questionnaire PHQ-9 Over the last 2 weeks, how often have you been bothered by any of the following problems? 1. Little interest or pleasure in doing things: not at all 2. Feeling down, depressed, or hopeless: not at all 3. Trouble falling or staying asleep, or sleeping too much: not at all 4. Feeling tired or having little energy: not at all 5. Poor appetite or overeating: not at all 6. Feeling bad about yourself - or that you are a failure or have let yourself or your family down: not at all 7. Trouble concentrating on things, such as reading the newspaper or watching television: not at all 8. Moving or speaking so slowly that other people could have noticed. Or the opposite - being so fidgety or restless that you have been moving around a lot more than usual: not at all 9. Thoughts that you would be better off or of hurting yourself in some way: not at all Total score: 0 Depression Screening Interpretation: Negative Depression Screening Done: Yes 62428 - PHQ-9 Billing: Yes Source: Developed by Minoo IbarraW. Juwan, Jaziel Stubbs and colleagues, with an educational cristy from [employer]. Thrive Questionnaire Date Thrive assessed: 12/28/24 I am a: Patient What is your living situation today?: I have a steady place to live Within the past 12 months, did the food you bought not last and you didn't have the money to get more?: Never true Within the past 12 months, did you worry whether your food would run out before you got money to buy more?: Never true Do you have trouble paying for medicines?: No Do you have trouble getting transportation to medical appointments?: No Do you have trouble paying your heating and electricity bill?: No Do you have trouble taking care of your child, family member or friend?: No Do you have trouble with day-to-day activities such as bathing, preparing meals, shopping, managing finances, etc.?: No Are you currently unemployed and looking for a job?: No Are you interested in more education?: No Please select the resources that you would like help with: None Currently or been in a relationship where the following occur: No concerns reported THRIVE Score: 0 AUDIT C Alcohol Use Questionnaire (AUDIT-C) 1. How often do you have a drink containing alcohol?: 2-4 times a month 2. How many drinks containing alcohol do you have on a typical day when you are drinking?: 1 or 2 3. How often do you have six or more drinks on one occasion?: Never Total Score: 2 Score Reviewed/Action Taken: No MJ-7 AMB Questionnaire MJ-7 Date MJ - 7 assessed: 12/30/24 Source: Developed by Drs. Edwin Saenz, Jaziel Che and colleagues, with an educational cristy from [employer]. Review of Systems Const All systems reviewed & are unremarkable except as noted in HPI and below Card Denies chest pain at rest, Denies chest pain with activity, Denies edema, Denies irregular heart rhythm, Denies claudication, Denies dyspnea, Denies dyspnea on exertion, Denies orthopnea, Denies paroxysmal nocturnal dyspnea and Denies slow heart rate Resp Denies cough, Denies dyspnea and Denies dyspnea on exertion GI Denies abdominal pain, Denies change in bowel habits, Denies excessive flatus, Denies nausea and Denies vomiting Physical exam (Primary Care) Vital Signs: Last Vital Signs Pulse 65 08/31/25 16:22 BP 130/76 08/31/25 16:22 Pulse Ox 98 08/31/25 16:22 Oxygen Delivery Method Room Air 08/31/25 16:22 BMI result Body Mass Index 31.4 BMI Assessment/Plan discussion: High BMI High, discussed plan: lifestyle, weight reduction, dietary and physical activity Tobacco/Smoking Status: Tobacco use Status Tobacco use date assessed 08/31/25 08/31/25 16:25 Patient Tobacco Use Status Never used Tobacco 08/31/25 16:25 e-Cigarette/Vaping Use Never Used 08/31/25 16:25 PHQ-9: PHQ-9 Score PHQ-9: Total score 0 08/31/25 16:39 Depression Screening Interpretation: Negative Thrive Assessment: Date of Thrive Assessment Date Thrive assessed 12/28/24 08/31/25 16:25 Currently or been in a relationship where the following occur: No concerns reported Resp Effort & Inspection: normal respiratory effort Auscultation: clear to auscultation bilaterally Cardio Jugular venous distension: no JVD Rate: regular rate Rhythm: regular rhythm Heart sounds: S1 normal heart sound present and S2 normal heart sound present Extrem General: Yes full ROM Coding Level of Care Code Est Pt Level 3 (97884) Complex EM visit Add On G2211 Diagnoses Atrial flutter I48.92 Invasive ductal carcinoma of breast C50.919 MJ (generalized anxiety disorder) F41.1 Additional Codes PHQ-9 - 46052 - PHQ-9 Billing: Yes ([id number]) Time Spent (min) 19 Assessment & Plan Assessment & Plan (1) Atrial flutter: Code(s): I48.92 - Unspecified atrial flutter Category: Medical (2) Invasive ductal carcinoma of breast: Code(s): C50.919 - Malignant neoplasm of unspecified site of unspecified female breast Category: Medical (3) MJ (generalized anxiety disorder): Code(s): F41.1 - Generalized anxiety disorder Category: Medical Plan Plan 1. Anxiety Disorder The patient reports recurrent panic attacks with associated nausea, vomiting, sweating, and chest tightness, which have been occurring since she started radiation therapy. She is not interested in a daily medication. A prescription for a controlled substance was provided for as-needed use during acute panic attacks. The patient was counseled that this medication can cause sedation, addiction, and long-term dementia, and she should not drive or operate machinery after taking it. A quantity of 20 tablets was prescribed and sent to her pharmacy. The long-term benefit of counseling was also discussed. 2. Radiation Dermatitis The patient has developed a rash from her radiation treatments. She notes cortisone has not been effective, and she has been using Aquaphor. Topical treatments such as diaper rash cream or an ointment called Mason de Ubre were recommended as alternatives. Medications: New lorazepam 0.5 mg PO BID PRN 20 tabs 0RF anxiety 30 days
[2025-08-31 16:22] VITALS: BP 130/76; PULSE 65; O2SAT 98; BMI 31.4
--- OUTSIDE RECORDS SUMMARY | 2025-08-31 19:09 | XMS_ITS ---
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 Past Treatment and Therapy Plans No past plan information found. Current Radiation Episodes * Radiation Therapy: BreastOverview* First Treatment Date Latest Treatment Date Treatment Site Technique Goal Episode Provider 08/04/2025 08/31/2025 Breast Curative Marco Cortes MD * Linked Problems Treatment Courses* Course 1 08/04/2025 - 08/31/2025 Treatment Sites Treatment Period Fraction Dose Fractions Total Dose Right breast boost 08/26/2025 - 08/31/2025 250 / 250 cGy 4 1,000 / 1,000 cGy Right breast 08/04/2025 - 08/25/2025 267 / 267 cGy 4,272 / 4,272 cGy
--- OUTSIDE RECORDS SUMMARY | 2025-08-31 19:09 | XMS_ITS | Clinical Summary ---
Author Organization [facility] Address [address] [place] [address] Care Team Providers Care Parquetry Floor Layer Name Role Phone Michelle Tripathi MD Primary Care Provider [phone] Allergies Active Allergy Reactions Criticality Noted Date [...] mouth 1 (one) time each day. Active ondansetron ODT (ZOFRAN-ODT) 4 mg disintegrating tablet DISSOLVE 1 TABLET BY MOUTH EVERY 6 HOURS NEEDED FOR NAUSEA AND VOMITING Active oxyCODONE-acetamino phen (PERCOCET) 5-325 mg per tablet 05/28/20 2 5 Active Active Problems Problem Noted Date Diagnosed Date Malignant neoplasm of upper- outer quadrant of right female breast ([facility]/HCC V24, CMS/HCC V28) 07/08/2025 Class 1 obesity 06/30/2025 Adopted 06/30/2025 Alcohol use 06/30/2025 Atrial flutter (CMS/HCC V24, CMS/HCC V28) 2024 Breast calcification seen on mammogram 08/26/202 5 Hyperlipidemia 06/30/2025 Invasive ductal carcinoma of breast (CMS/HCC V24, CMS/HCC V28) 06/30/2025 Lung nodule 06/30/2025 Skin cancer 06/30/2025 Sleep apnea 06/30/2025 Encounters Date Type Department Care Team Description 08/31/2025 8:35 AM EDT Hospital Encounter [facility] Radiation Oncology [address] [place] [phone] Blade Van MD Infiltrating ductal carcinoma of right breast (CMS/HCC V24, CMS/HCC V28) (Primary Dx) 08/31/2025 8:18 AM EDT Hospital Encounter [facility] Radiation Oncology [address] [place] [phone] 08/28/2025 8:18 AM EDT Hospital Encounter [facility] Radiation Oncology [address] [place] [phone] 08/27/2025 8:15 AM EDT - 08/27/2025 11:59 PM EDT Hospital Encounter [facility] Radiation Oncology [address] [place] [phone] Discharge Disposition: Home or Self Care 08/26/2025 8:37 AM EDT - 08/26/2025 11:59 PM EDT Hospital Encounter [facility] Radiation Oncology [address] [place] [phone] Blade Van MD Discharge Disposition: Home or Self Care 08/26/2025 8:15 AM EDT - 08/26/2025 11:59 PM EDT Hospital Encounter [facility] Radiation Oncology [address] [place] [phone] Discharge Disposition: Home or Self Care 08/25/2025 8:10 AM EDT - 08/25/2025 11:59 PM EDT Hospital Encounter [facility] Radiation Oncology [address] [place] [phone] Discharge Disposition: Home or Self Care 08/24/2025 8:28 AM EDT - 08/24/2025 11:59 PM EDT Hospital Encounter [facility] Radiation Oncology [address] [place] [phone] Marco Cortes MD Malignant neoplasm of upper-outer quadrant of right female breast, unspecified estrogen receptor status (CMS/HCC V24, CMS/HCC V28) (Primary Dx) Discharge Disposition: Home or Self Care 08/24/2025 8:18 AM EDT - 08/24/2025 11:59 PM EDT Hospital Encounter [facility] Radiation Oncology [address] [place] [phone] Discharge Disposition: Home or Self Care 08/21/2025 8:30 AM EDT - 08/21/2025 11:59 PM EDT Hospital Encounter [facility] Radiation Oncology [address] [place] [phone] Discharge Disposition: Home or Self Care 08/20/2025 8:21 AM EDT - 08/20/2025 11:59 PM EDT Hospital Encounter [facility] Radiation Oncology [address] [place] [phone] Discharge Disposition: Home or Self Care 08/19/2025 8:18 AM EDT - 08/19/2025 11:59 PM EDT Hospital Encounter [facility] Radiation Oncology [address] [place] [phone] Discharge Disposition: Home or Self Care 08/18/2025 8:19 AM EDT - 08/18/2025 11:59 PM EDT Hospital Encounter [facility] Radiation Oncology [address] [place] [phone] Discharge Disposition: Home or Self Care 08/17/2025 8:29 AM EDT - 08/17/2025 11:59 PM EDT Hospital Encounter [facility] Radiation Oncology [address] [place] [phone] Marco Cortes MD Malignant neoplasm of upper-outer quadrant of right female breast, unspecified estrogen receptor status (CMS/HCC V24, CMS/HCC V28) (Primary Dx) Discharge Disposition: Home or Self Care 08/17/2025 8:17 AM EDT - 08/17/2025 11:59 PM EDT Hospital Encounter [facility] Radiation Oncology [address] [place] [phone] Discharge Disposition: Home or Self Care 08/17/2025 7:41 AM EDT - 08/17/2025 11:59 PM EDT Hospital Encounter [facility] Radiation Oncology [address] [place] [phone] Discharge Disposition: Home or Self Care 08/14/2025 8:24 AM EDT - 08/14/2025 11:59 PM EDT Hospital Encounter [facility] Radiation Oncology [address] [place] [phone] Malignant neoplasm of upper-outer quadrant of right female breast, unspecified estrogen receptor status (CMS/HCC V24, CMS/HCC V28) (Primary Dx) Discharge Disposition: Home or Self Care 08/13/2025 8:20 AM EDT - 08/13/2025 11:59 PM EDT Hospital Encounter [facility] Radiation Oncology [address] [place] [phone] Discharge Disposition: Home or Self Care 08/12/2025 8:19 AM EDT - 08/12/2025 11:59 PM EDT Hospital Encounter [facility] Radiation Oncology [address] [place] [phone] Discharge Disposition: Home or Self Care 08/11/2025 8:19 AM EDT - 08/11/2025 11:59 PM EDT Hospital Encounter [facility] Radiation Oncology [address] [place] [phone] Discharge Disposition: Home or Self Care 08/10/2025 8:29 AM EDT - 08/10/2025 11:59 PM EDT Hospital Encounter [facility] Radiation Oncology [address] [place] [phone] Maroc Cortes MD Malignant neoplasm of upper-outer quadrant of right breast in female, estrogen receptor positive (CMS/HCC V24, CMS/HCC V28) (Primary Dx) Discharge Disposition: Home or Self Care 08/10/2025 8:18 AM EDT - 08/10/2025 11:59 PM EDT Hospital Encounter [facility] Radiation Oncology [address] [place] [phone] Discharge Disposition: Home or Self Care 08/07/2025 8:20 AM EDT - 08/07/2025 11:59 PM EDT Hospital Encounter [facility] Radiation Oncology [address] [place] [phone] Discharge Disposition: Home or Self Care 08/06/2025 8:19 AM EDT - 08/06/2025 11:59 PM EDT Hospital Encounter [facility] Radiation Oncology [address] [place] [phone] Discharge Disposition: Home or Self Care 08/05/2025 8:18 AM EDT - 08/05/2025 11:59 PM EDT Hospital Encounter [facility] Radiation Oncology [address] [place] [phone] Discharge Disposition: Home or Self Care 08/05/2025 Telephone [facility] Radiation Oncology [address] [place] [phone] Bell Jean Baptiste RN 08/04/2025 9:34 AM EDT - 08/04/2025 11:59 PM EDT Hospital Encounter [facility] Radiation Oncology [address] [place] [phone] Jose Nam MD Discharge Disposition: Home or Self Care 08/04/2025 9:13 AM EDT - 08/04/2025 11:59 PM EDT Hospital Encounter [facility] Radiation Oncology [address] [place] [phone] Discharge Disposition: Home or Self Care 08/04/2025 Telephone [facility] Radiation Oncology [address] [place] [phone] Christal Wright, RN 08/04/2025 Telephone [facility] Radiation Oncology [address] [place] [phone] Christal Wright, RN 08/03/2025 2:47 PM EDT - 08/03/2025 11:59 PM EDT Hospital Encounter [facility] Radiation Oncology [address] [place] [phone] Discharge Disposition: Home or Self Care 07/28/2025 9:45 AM EDT - 07/28/2025 11:59 PM EDT Hospital Encounter [facility] Radiation Oncology [address] [place] [phone] Marco Cortes MD Malignant neoplasm of upper-outer quadrant of right female breast, unspecified estrogen receptor status (CMS/HCC V24, CMS/HCC V28) (Primary Dx); Breast cancer (CMS/HCC V24, CMS/HCC V28) Discharge Disposition: Home or Self Care 07/28/2025 9:05 AM EDT - 07/28/2025 11:59 PM EDT Hospital Encounter [facility] Radiation Oncology [address] [place] [phone] Discharge Disposition: Home or Self Care 07/08/2025 8:28 AM EDT - 07/08/2025 11:59 PM EDT Hospital Encounter [facility] Radiation Oncology [address] [place] [phone] Akila Foley MD Malignant neoplasm of upper-outer quadrant of right breast in female, estrogen receptor positive (CMS/HCC V24, CMS/HCC V28) (Primary Dx); Breast cancer (CMS/HCC V24, CMS/HCC V28) Discharge Disposition: Home or Self Care 07/08/2025 8:27 AM EDT - 07/08/2025 11:59 PM EDT Hospital Encounter [facility] Radiation Oncology [address] [place] [phone] Discharge Disposition: Home or Self Care 07/01/2025 Telephone [facility] Radiation Oncology [address] [place] [phone] Salena Giles MA 06/24/2025 3:00 PM EDT Office Visit Orthopedic Surgery - [place] [address] [facility] [address] [place] [phone] Hai Vazquez MD Incomplete rotator cuff tear or rupture of left shoulder, not specified as traumatic (Primary Dx) 06/23/2025 Telephone [facility] Radiation Oncology [address] [place] [phone] Salena Anderson MA from Last 3 Months Surgical History Surgery Date Site/Laterality Comments CYST REMOVAL 11/05/2004 - 11/04/2005 sebaceous cyst removal from base of tailbone BREAST LUMPECTOMY 05/28/2025 Right Medical History Medical History Date Comments Fluttering heart Breast cancer ([facility] V24, [facility] V28) Family History * Patient is adopted Relation Name Status Comments Brother Zia skin Social History Tobacco Use Types Packs/Day Years Used Date Smoking Tobacco: Never Tobacco Cessation:Counseling Given: Not Answered Alcohol Use Standard Drinks/Week Comments Yes 5 (1 standard drink = 0.6 oz pur e alcohol) Comments Unknown Sex and Gender Information Value Date Recorded Sex Assigned at Not on file Legal Sex Female 3:41 PM EDT Gender Identity Female 06/23/2025 6:25 PM EDT Sexual Orientation Not on file Obstetrics History Last Filed Vital Signs Vital Sign Reading Time Taken Comments Blood Pressure 140/72 07/08/2025 8:40 AM EDT Pulse 69 07/08/2025 8:40 AM EDT Temperature 36.1 C (97 F) 07/08/2025 8:40 AM EDT Respiratory Rate 16 07/08/2025 8:40 AM EDT Oxygen Saturation 98% 07/08/2025 8:40 AM EDT Inhaled Oxygen Concentration - - Weight 93 kg (205 lb) 07/08/2025 8:40 AM EDT Height 172.7 cm (5' 8 ) 07/08/2025 8:40 AM EDT Body Mass Index 31.17 07/08/2025 8:40 AM EDT Plan of Treatment Upcoming Encounters Date Type Department Care Team (Late st Contact Info) Description 10/06/2025 3:00 PM EST Appointment [facility] Radiation Oncology [address] [place] [phone] Zenia Sal NP [address] [place] [address] Health Maintenance Due Date Last Done Comments Breast Cancer Screening 1960 DTaP,Tdap,and Td Vaccines (1 - Tdap) 1979 Pneumococcal Vaccine: 50+ Years (1 of 2 - PCV) 1979 Zoster Vaccines (1 of 2) 1979 Cervical Cancer Screening: Pap Smear 1981 RSV Immunization Adult Patients (1 - Risk 50-74 years 1-dose series) 2010 Cholesterol Screening (Lipid Panel) 09/07/2024 Hepatitis C Screening 09/07/2024 Osteoporosis Screening (Bone Density Screening) 09/07/2024 Social Influencers of Health Screening 09/07/2024 Depression Screening 11/05/2024 Falls Risk Assessment 2025 COVID-19 Vaccine ( season) 2025 07/29/2022, 10/23/2021, 02/16/2021, Additional history exists Influenza Vaccine (#1) 2025 Colorectal Cancer Screening: FIT-DNA (Cologuard) 01/07/2028 01/06/2025, 01/06/2025, 12/21/2021 HIB Vaccines Aged Out No longer eligi [...] TREATMENT SUMMARY Routine 08/31/2025 8:37 AM EDT RAD ONC MSQ TREATMENT SUMMARY Routine 08/28/2025 8:34 AM EDT RAD ONC MSQ TREATMENT SUMMARY Routine 08/27/2025 8:29 AM EDT RAD ONC MSQ TREATMENT SUMMARY Routine 08/26/2025 8:37 AM EDT RAD ONC MSQ TREATMENT SUMMARY Routine 08/25/2025 8:21 AM EDT RAD ONC MSQ TREATMENT SUMMARY Routine 08/24/2025 8:28 AM EDT RAD ONC MSQ TREATMENT SUMMARY Routine 08/21/2025 9:01 AM EDT RAD ONC MSQ TREATMENT SUMMARY Routine 08/20/2025 8:43 AM EDT RAD ONC MSQ TREATMENT SUMMARY Routine 08/19/2025 8:31 AM EDT RAD ONC MSQ TREATMENT SUMMARY Routine 08/18/2025 8:38 AM EDT RAD ONC MSQ TREATMENT SUMMARY Routine 08/17/2025 8:29 AM EDT RAD ONC MSQ TREATMENT SUMMARY Routine 08/14/2025 8:38 AM EDT RAD ONC MSQ TREATMENT SUMMARY Routine 08/13/2025 8:30 AM EDT RAD ONC MSQ TREATMENT SUMMARY Routine 08/12/2025 8:30 AM EDT RAD ONC MSQ TREATMENT SUMMARY Routine 08/11/2025 8:31 AM EDT RAD ONC MSQ TREATMENT SUMMARY Routine 08/10/2025 8:29 AM EDT RAD ONC MSQ TREATMENT SUMMARY Routine 08/07/2025 8:32 AM EDT RAD ONC MSQ TREATMENT SUMMARY Routine 08/06/2025 8:40 AM EDT RAD ONC MSQ TREATMENT SUMMARY Routine 08/05/2025 8:36 AM EDT RAD ONC MSQ TREATMENT SUMMARY Routine 08/04/2025 9:34 AM EDT from Last 3 Months Results * Rad Onc Msq Treatment Summary [...] 1,000 cGray MOSAIQ RADIATION ONCOLOGY Prescribed Technique AZERBAIJANI/RPO MOSAIQ RADIATION ONCOLOGY Elapsed Days 5 MOSAIQ RADIATION ONCOLOGY Start Date 08/26/2025 MOSAIQ RADIATION ONCOLOGY Last Date 08/31/2025 MOSAIQ RADIATION ONCOLOGY Prescribed Number of Fractions 4 MOSAIQ RADIATION ONCOLOGY 08/31/2025 8:37 AM EDT Physician Radiation Oncology RADIATION ONCOLO GY ORDERABLES Final Result Performing Organization Address City/[facility]/ZIP Co de Phone Number MOSAIQ RADIATION ONCOLOGY * Rad Onc Msq Treatment Summary (08/28/2025 [...] 750 cGray MOSAIQ RADIATION ONCOLOGY Prescribed Technique AZERBAIJANI/RPO MOSAIQ RADIATION ONCOLOGY Elapsed Days 2 MOSAIQ RADIATION ONCOLOGY Start Date 08/26/2025 MOSAIQ RADIATION ONCOLOGY Last Date 08/28/2025 MOSAIQ RADIATION ONCOLOGY Prescribed Number of Fractions 4 MOSAIQ RADIATION ONCOLOGY 08/28/2025 8:34 AM EDT Physician Radiation Oncology RADIATION ONCOLO GY ORDERABLES Final Result MOSAIQ RADIATION ONCOLOGY * Rad Onc Msq Treatment Summary (08/27/2025 [...] 500 cGray MOSAIQ RADIATION ONCOLOGY Prescribed Technique AZERBAIJANI/RPO MOSAIQ RADIATION ONCOLOGY Elapsed Days 1 MOSAIQ RADIATION ONCOLOGY Start Date 08/26/2025 MOSAIQ RADIATION ONCOLOGY Last Date 08/27/2025 MOSAIQ RADIATION ONCOLOGY Prescribed Number of Fractions 4 MOSAIQ RADIATION ONCOLOGY 08/27/2025 8:29 AM EDT Physician Radiation Oncology RADIATION ONCOLO GY ORDERABLES Final Result Performing Organization Address City/[facility] Co de Phone Number MOSAIQ RADIATION ONCOLOGY * Rad Onc Msq Treatment Summary (08/26/2025 [...] 250 cGray MOSAIQ RADIATION ONCOLOGY Prescribed Technique AZERBAIJANI/RPO MOSAIQ RADIATION ONCOLOGY Elapsed Days 0 MOSAIQ RADIATION ONCOLOGY Start Date 08/26/2025 MOSAIQ RADIATION ONCOLOGY Last Date 08/26/2025 MOSAIQ RADIATION ONCOLOGY Prescribed Number of Fractions 4 MOSAIQ RADIATION ONCOLOGY 08/26/2025 8:37 AM EDT Physician Radiation Oncology RADIATION ONCOLO GY ORDERABLES Final Result MOSAIQ RADIATION ONCOLOGY * Rad Onc Msq Treatment Summary (08/25/2025 [...] MOSAIQ RADIATION ONCOLOGY 08/25/2025 8:21 AM EDT Physician Radiation Oncology RADIATION ONCDILIA GY ORDERABLES Final Result MOSAIQ RADIATION ONCOLOGY * Rad Onc Msq Treatment Summary (08/24/2025 8:28 AM EDT) Treatment Site Right breast MO SAIQ RADIATION ONCOLOGY Course Number 1 MOSAIQ RADIATION ONCOLOGY Prescribed Fractional Dose 267 cGray MOSAIQ RADIATION ONCOLOGY Prescribed Total Dose 4,272 cGray MOSAIQ RADIATION ONCOLOGY Actual Fractions Delivered 15 MOSAIQ RADIATION ONCOLOGY Actual Session Delivered Dose 267 cGray MOSAIQ RADIATION ONCOLOGY Actual Total Dose 4,005 cGray MOSAIQ RADIATION ONCOLOGY Prescribed Technique Tangents MOSAIQ RADIATION ONCOLOGY Elapsed Days MOSAIQ RADIATION ONCOLOGY Start Date 08/04/2025 MOSAIQ RADIATION ONCOLOGY Last Date 08/24/2025 MOSAIQ RADIATION ONCOLOGY Prescribed Number of Fractions 16 MOSAIQ RADIATION ONCOLOGY 08/24/2025 8:28 AM EDT Physician Radiation Oncology RADIATION ONCDILIA GY ORDERABLES Final Result MOSAIQ RADIATION ONCOLOGY * Rad Onc Msq Treatment Summary (08/21/2025 9:01 AM EDT) Treatment Site Right breast MO SAIQ RADIATION ONCOLOGY Course Number 1 MOSAIQ RADIATION ONCOLOGY Prescribed Fractional Dose 267 cGray MOSAIQ RADIATION ONCOLOGY Prescribed Total Dose 4,272 cGray MOSAIQ RADIATION ONCOLOGY Actual Fractions Delivered 14 MOSAIQ RADIATION ONCOLOGY Actual Session Delivered Dose 267 cGray MOSAIQ RADIATION ONCOLOGY Actual Total Dose 3,738 cGray MOSAIQ RADIATION ONCOLOGY Prescribed Technique Tangents MOSAIQ RADIATION ONCOLOGY Elapsed Days 17 MOSAIQ RADIATION ONCOLOGY Start Date 08/04/2025 MOSAIQ RADIATION ONCOLOGY Last Date 08/21/2025 MOSAIQ RADIATION ONCOLOGY Prescribed Number of Fractions 16 MOSAIQ RADIATION ONCOLOGY 08/21/2025 9:01 AM EDT Physician Radiation Oncology RADIATION ONCDILIA GY ORDERABLES Final Result MOSAIQ RADIATION ONCOLOGY * Rad Onc Msq Treatment Summary (08/20/2025 8:43 AM EDT) Treatment Site Right breast MO SAIQ RADIATION ONCOLOGY Course Number 1 MOSAIQ RADIATION ONCOLOGY Prescribed Fractional Dose 267 cGray MOSAIQ RADIATION ONCOLOGY Prescribed Total Dose 4,272 cGray MOSAIQ RADIATION ONCOLOGY Actual Fractions Delivered 13 MOSAIQ RADIATION ONCOLOGY Actual Session Delivered Dose 267 cGray MOSAIQ RADIATION ONCOLOGY Actual Total Dose 3,471 cGray MOSAIQ RADIATION ONCOLOGY Prescribed Technique Tangents MOSAIQ RADIATION ONCOLOGY Elapsed Days 16 MOSAIQ RADIATION ONCOLOGY Start Date 08/04/2025 MOSAIQ RADIATION ONCOLOGY Last Date 08/20/2025 MOSAIQ RADIATION ONCOLOGY Prescribed Number of Fractions 16 MOSAIQ RADIATION ONCOLOGY 08/20/2025 8:43 AM EDT Physician Radiation Oncology RADIATION ONCDILIA GY ORDERABLES Final Result MOSAIQ RADIATION ONCOLOGY * Rad Onc Msq Treatment Summary (08/19/2025 8:31 AM EDT) Treatment Site Right breast MO SAIQ RADIATION ONCOLOGY Course Number 1 MOSAIQ RADIATION ONCOLOGY Prescribed Fractional Dose 267 cGray MOSAIQ RADIATION ONCOLOGY Prescribed Total Dose 4,272 cGray MOSAIQ RADIATION ONCOLOGY Actual Fractions Delivered 12 MOSAIQ RADIATION ONCOLOGY Actual Session Delivered Dose 267 cGray MOSAIQ RADIATION ONCOLOGY Actual Total Dose 3,204 cGray MOSAIQ RADIATION ONCOLOGY Prescribed Technique Tangents MOSAIQ RADIATION ONCOLOGY Elapsed Days 15 MOSAIQ RADIATION ONCOLOGY Start Date 08/04/2025 MOSAIQ RADIATION ONCOLOGY Last Date 08/19/2025 MOSAIQ RADIATION ONCOLOGY Prescribed Number of Fractions 16 MOSAIQ RADIATION ONCOLOGY 08/19/2025 8:31 AM EDT Physician Radiation Oncology RADIATION ONCOLO GY ORDERABLES Final Result MOSAIQ RADIATION ONCOLOGY * Rad Onc Msq Treatment Summary (08/18/2025 8:38 AM EDT) Treatment Site Right breast MO SAIQ RADIATION ONCOLOGY Course Number 1 MOSAIQ RADIATION ONCOLOGY Prescribed Fractional Dose 267 cGray MOSAIQ RADIATION ONCOLOGY Prescribed Total Dose 4,272 cGray MOSAIQ RADIATION ONCOLOGY Actual Fractions Delivered 11 MOSAIQ RADIATION ONCOLOGY Actual Session Delivered Dose 267 cGray MOSAIQ RADIATION ONCOLOGY Actual Total Dose 2,937 cGray MOSAIQ RADIATION ONCOLOGY Prescribed Technique Tangents MOSAIQ RADIATION ONCOLOGY Elapsed Days 14 MOSAIQ RADIATION ONCOLOGY Start Date 08/04/2025 MOSAIQ RADIATION ONCOLOGY Last Date 08/18/2025 MOSAIQ RADIATION ONCOLOGY Prescribed Number of Fractions 16 MOSAIQ RADIATION ONCOLOGY 08/18/2025 8:38 AM EDT Physician Radiation Oncology RADIATION ONCOLO GY ORDERABLES Final Result MOSAIQ RADIATION ONCOLOGY * Rad Onc Msq Treatment Summary (08/17/2025 8:29 AM EDT) Treatment Site Right breast MO SAIQ RADIATION ONCOLOGY Course Number 1 MOSAIQ RADIATION ONCOLOGY Prescribed Fractional Dose 267 cGray MOSAIQ RADIATION ONCOLOGY Prescribed Total Dose 4,272 cGray MOSAIQ RADIATION ONCOLOGY Actual Fractions Delivered 10 MOSAIQ RADIATION ONCOLOGY Actual Session Delivered Dose 267 cGray MOSAIQ RADIATION ONCOLOGY Actual Total Dose 2,670 cGray MOSAIQ RADIATION ONCOLOGY Prescribed Technique Tangents MOSAIQ RADIATION ONCOLOGY Elapsed Days 13 MOSAIQ RADIATION ONCOLOGY Start Date 08/04/2025 MOSAIQ RADIATION ONCOLOGY Last Date 08/17/2025 MOSAIQ RADIATION ONCOLOGY Prescribed Number of Fractions 16 MOSAIQ RADIATION ONCOLOGY 08/17/2025 8:29 AM EDT Physician Radiation Oncology RADIATION ONCOLO GY ORDERABLES Final Result MOSAIQ RADIATION ONCOLOGY * Rad Onc Msq Treatment Summary (08/14/2025 8:38 AM EDT) Treatment Site Right breast MO SAIQ RADIATION ONCOLOGY Course Number 1 MOSAIQ RADIATION ONCOLOGY Prescribed Fractional Dose 267 cGray MOSAIQ RADIATION ONCOLOGY Prescribed Total Dose 4,272 cGray MOSAIQ RADIATION ONCOLOGY Actual Fractions Delivered 9 MOSAIQ RADIATION ONCOLOGY Actual Session Delivered Dose 267 cGray MOSAIQ RADIATION ONCOLOGY Actual Total Dose 2,403 cGray MOSAIQ RADIATION ONCOLOGY Prescribed Technique Tangents MOSAIQ RADIATION ONCOLOGY Elapsed Days 10 MOSAIQ RADIATION ONCOLOGY Start Date 08/04/2025 MOSAIQ RADIATION ONCOLOGY Last Date 08/14/2025 MOSAIQ RADIATION ONCOLOGY Prescribed Number of Fractions 16 MOSAIQ RADIATION ONCOLOGY 08/14/2025 8:38 AM EDT Physician Radiation Oncology RADIATION ONCDILIA GY ORDERABLES Final Result MOSAIQ RADIATION ONCOLOGY * Rad Onc Msq Treatment Summary (08/13/2025 8:30 AM EDT) Treatment Site Right breast MO SAIQ RADIATION ONCOLOGY Course Number 1 MOSAIQ RADIATION ONCOLOGY Prescribed Fractional Dose 267 cGray MOSAIQ RADIATION ONCOLOGY Prescribed Total Dose 4,272 cGray MOSAIQ RADIATION ONCOLOGY Actual Fractions Delivered 8 MOSAIQ RADIATION ONCOLOGY Actual Session Delivered Dose 267 cGray MOSAIQ RADIATION ONCOLOGY Actual Total Dose 2,136 cGray MOSAIQ RADIATION ONCOLOGY Prescribed Technique Tangents MOSAIQ RADIATION ONCOLOGY Elapsed Days 9 MOSAIQ RADIATION ONCOLOGY Start Date 08/04/2025 MOSAIQ RADIATION ONCOLOGY Last Date 08/13/2025 MOSAIQ RADIATION ONCOLOGY Prescribed Number of Fractions 16 MOSAIQ RADIATION ONCOLOGY 08/13/2025 8:30 AM EDT Physician Radiation Oncology RADIATION ONCDILIA GY ORDERABLES Final Result MOSAIQ RADIATION ONCOLOGY * Rad Onc Msq Treatment Summary (08/12/2025 8:30 AM EDT) Treatment Site Right breast MO SAIQ RADIATION ONCOLOGY Course Number 1 MOSAIQ RADIATION ONCOLOGY Prescribed Fractional Dose 267 cGray MOSAIQ RADIATION ONCOLOGY Prescribed Total Dose 4,272 cGray MOSAIQ RADIATION ONCOLOGY Actual Fractions Delivered 7 MOSAIQ RADIATION ONCOLOGY Actual Session Delivered Dose 267 cGray MOSAIQ RADIATION ONCOLOGY Actual Total Dose 1,869 cGray MOSAIQ RADIATION ONCOLOGY Prescribed Technique Tangents MOSAIQ RADIATION ONCOLOGY Elapsed Days 8 MOSAIQ RADIATION ONCOLOGY Start Date 08/04/2025 MOSAIQ RADIATION ONCOLOGY Last Date 08/12/2025 MOSAIQ RADIATION ONCOLOGY Prescribed Number of Fractions 16 MOSAIQ RADIATION ONCOLOGY 08/12/2025 8:30 AM EDT Physician Radiation Oncology RADIATION ONCOLO GY ORDERABLES Final Result MOSAIQ RADIATION ONCOLOGY * Rad Onc Msq Treatment Summary (08/11/2025 8:31 AM EDT) Treatment Site Right breast MO SAIQ RADIATION ONCOLOGY Course Number 1 MOSAIQ RADIATION ONCOLOGY Prescribed Fractional Dose 267 cGray MOSAIQ RADIATION ONCOLOGY Prescribed Total Dose 4,272 cGray MOSAIQ RADIATION ONCOLOGY Actual Fractions Delivered 6 MOSAIQ RADIATION ONCOLOGY Actual Session Delivered Dose 267 cGray MOSAIQ RADIATION ONCOLOGY Actual Total Dose 1,602 cGray MOSAIQ RADIATION ONCOLOGY Prescribed Technique Tangents MOSAIQ RADIATION ONCOLOGY Elapsed Days 7 MOSAIQ RADIATION ONCOLOGY Start Date 08/04/2025 MOSAIQ RADIATION ONCOLOGY Last Date 08/11/2025 MOSAIQ RADIATION ONCOLOGY Prescribed Number of Fractions 16 MOSAIQ RADIATION ONCOLOGY 08/11/2025 8:31 AM EDT Physician Radiation Oncology RADIATION ONCDILIA GY ORDERABLES Final Result MOSAIQ RADIATION ONCOLOGY * Rad Onc Msq Treatment Summary (08/10/2025 8:29 AM EDT) Treatment Site Right breast MO SAIQ RADIATION ONCOLOGY Course Number 1 MOSAIQ RADIATION ONCOLOGY Prescribed Fractional Dose 267 cGray MOSAIQ RADIATION ONCOLOGY Prescribed Total Dose 4,272 [facility] RADIATION ONCOLOGY Actual Fractions Delivered 5 [facility] RADIATION ONCOLOGY Actual Session Delivered Dose 267 [facility] MOSAIQ RADIATION ONCOLOGY Actual Total Dose 1,335 [facility] MOSAIQ RADIATION ONCOLOGY Prescribed Technique Tangents MOSAIQ RADIATION ONCOLOGY Elapsed Days 6 MOSAIQ RADIATION ONCOLOGY Start Date 08/04/2025 MOS[facility] RADIATION ONCOLOGY Last Date 08/10/2025 MOS[facility] RADIATION ONCOLOGY Prescribed Number of Fractions 16 MOSAIQ RADIATION ONCOLOGY 08/10/2025 8:29 AM EDT Physician Radiation Oncology RADIATION ONCDILIA GY ORDERABLES Final Result MOSAIQ RADIATION ONCOLOGY * Rad Onc Msq Treatment Summary (08/07/2025 8:32 AM EDT) Treatment Site Right breast MO SAIQ RADIATION ONCOLOGY Course Number 1 MOSAIQ RADIATION ONCOLOGY Prescribed Fractional Dose 267 cGray MOSAIQ RADIATION ONCOLOGY Prescribed Total Dose 4,272 [facility] MOSAIQ RADIATION ONCOLOGY Actual Fractions Delivered 4 MOSAIQ RADIATION ONCOLOGY Actual Session Delivered Dose 267 [facility] MOSAIQ RADIATION ONCOLOGY Actual Total Dose 1,068 [facility] MOSAIQ RADIATION ONCOLOGY Prescribed Technique Tangents MOSAIQ RADIATION ONCOLOGY Elapsed Days 3 MOSAIQ RADIATION ONCOLOGY Start Date 08/04/2025 MOSAIQ RADIATION ONCOLOGY Last Date 08/07/2025 MOS[facility] RADIATION ONCOLOGY Prescribed Number of Fractions 16 MOSAIQ RADIATION ONCOLOGY 08/07/2025 8:32 AM EDT Physician Radiation Oncology RADIATION ONCDILIA GY ORDERABLES Final Result MOSAIQ RADIATION ONCOLOGY * Rad Onc Msq Treatment Summary (08/06/2025 8:40 AM EDT) Treatment Site Right breast MO SAIQ RADIATION ONCOLOGY Course Number 1 MOSAIQ RADIATION ONCOLOGY Prescribed Fractional Dose 267 cGray MOSAIQ RADIATION ONCOLOGY Prescribed Total Dose 4,272 [facility] MOSAIQ RADIATION ONCOLOGY Actual Fractions Delivered 3 MOSAIQ RADIATION ONCOLOGY Actual Session Delivered Dose 267 [facility] MOSAIQ RADIATION ONCOLOGY Actual Total Dose 801 [facility] MOSAIQ RADIATION ONCOLOGY Prescribed Technique Tangents MOSAIQ RADIATION ONCOLOGY Elapsed Days 2 MOSAIQ RADIATION ONCOLOGY Start Date 08/04/2025 MOSAI[facility] RADIATION ONCOLOGY Last Date 08/06/2025 MOSAI[facility] RADIATION ONCOLOGY Prescribed Number of Fractions 16 MOSAIQ RADIATION ONCOLOGY 08/06/2025 8:40 AM EDT us Physician Radiation Oncology RADIATION ONCDILIA GY ORDERABLES Final Result MOSAIQ RADIATION ONCOLOGY * Rad Onc Msq Treatment Summary (08/05/2025 8:36 AM EDT) Treatment Site Right breast MO SAIQ RADIATION ONCOLOGY Course Number 1 MOSAIQ RADIATION ONCOLOGY Prescribed Fractional Dose 267 cGray MOSAIQ RADIATION ONCOLOGY Prescribed Total Dose 4,272 [facility] MOSAIQ RADIATION ONCOLOGY Actual Fractions Delivered 2 MOSAIQ RADIATION ONCOLOGY Actual Session Delivered Dose 267 [facility] MOSAIQ RADIATION ONCOLOGY Actual Total Dose 534 [facility] MOSAIQ RADIATION ONCOLOGY Prescribed Technique Tangents MOSAIQ RADIATION ONCOLOGY Elapsed Days 1 MOSAIQ RADIATION ONCOLOGY Start Date 08/04/2025 MOSAIQ RADIATION ONCOLOGY Last Date 08/05/2025 MOSAIQ RADIATION ONCOLOGY Prescribed Number of Fractions 16 MOSAIQ RADIATION ONCOLOGY 08/05/2025 8:36 AM EDT Physician Radiation Oncology RADIATION ONCOLO GY ORDERABLES Final Result Performing Organization Address City/[facility] Co de Phone Number MOSAIQ RADIATION ONCOLOGY * Rad Onc Msq Treatment Summary (08/04/2025 9:34 AM EDT) Treatment Site Right breast MO SAIQ RADIATION ONCOLOGY Course Number 1 MOSAIQ RADIATION ONCOLOGY Prescribed Fractional Dose 267 cGray MOSAIQ RADIATION ONCOLOGY Prescribed Total Dose 4,272 [facility] MOSAIQ RADIATION ONCOLOGY Actual Fractions Delivered 1 MOSAIQ RADIATION ONCOLOGY Actual Session Delivered Dose 267 [facility] MOSAIQ RADIATION ONCOLOGY Actual Total Dose 267 [facility] MOSAIQ RADIATION ONCOLOGY Prescribed Technique Tangents MOSAIQ RADIATION ONCOLOGY Elapsed Days 0 MOSAIQ RADIATION ONCOLOGY Start Date 08/04/2025 MOSAIQ RADIATION ONCOLOGY Last Date 08/04/2025 MOSAIQ RADIATION ONCOLOGY Prescribed Number of Fractions 16 MOSAIQ RADIATION ONCOLOGY 08/04/2025 9:34 AM EDT Physician Radiation Oncology RADIATION ONCOLO GY ORDERABLES Final Result MOSAIQ RADIATION ONCOLOGY from Last 3 Months Insurance [facility] MEDICARE Care Teams Parquetry Floor Layer Relationship Specialty Start Date End Date Michelle Tripathi MD [address] [place] [address] , [address] Physician Associ D/B/A: [facility] LISSA Torres PCP - General Internal Medicine 03/18/25
== END 2025-08-31 16:47 | disposition home or self-care (01) ==
LOC: HO.HMCH 16:20
PROVIDERS: PCP Internal Medicine; Visit Provider Internal Medicine
DX: I48.92 Unspecified atrial flutter (principal); C50.919 Malignant neoplasm of unspecified site of unspecified female breast; F41.1 Generalized anxiety disorder

== ENCOUNTER → 2025-08-31 16:19 | Outpatient (BNVA) | payer OTHER, SELFPAY | PROVIDERS: PCP Internal Medicine; Visit Provider Internal Medicine | DX: F41.1 Generalized anxiety disorder (principal); I48.92 Unspecified atrial flutter; F41.0 Panic disorder [episodic paroxysmal anxiety]; C50.919 Malignant neoplasm of unspecified site of unspecified female breast | CPT/HCPCS: 96127 ==